=== PATIENT | female | born 1940 | race Caucasian/White ===

== ENCOUNTER → 2016-12-01 | Outpatient (CLI) | payer MEDICARE, MEDICAID ==
[~2016-12-01] MED LIST: ACET-168 PO; ASP325T PO; ASP325TEC PO; ASPI-999 PO; ATOR40TA70 PO; ATR20T PO; BP MEDS; BUDE10.2 INH; BUDE6HFA IH; CENTRUM SILVER WOMEN; CLN.1T PO; CLONIDINE; CLONIDINE PO; CLOP75TA69 PO; DCS100C PO; DICL75TA2 PO; DOXY100T2 PO; FAMO20TA5 PO; FAMO20TA73 PO; FENO134C PO; FENO135C PO; FESO4TAB2 PO; Famotidine PO; GABA600T2 PO; GBPN600T PO; HCT25T PO; HCTZ12.5T GT; HYDR25TA4 PO; IPRA3AMP IH; IPRA3AMP INH; LEVO500T69 PO; LEVO750T39 PO; LOSA100T7 PO; LOSARTAN; LOVASTATIN; MAGN400T6 PO; METO-272 PO; METO100T5 PO; MULT-166 PO; MULT-974 PO; MULT1CAP27 PO; NIFE30TA82 PO; NIFE60TA64 PO; NIFE90TA PO; OMEG-105 PO; POTA10CA43 PO; PRD10T PO; RNT150T PO; RT-ALBUINH IH; TIOT18CA IH; TRAM50TA2 PO; TRAZ-144 PO; TRAZ50TA67 PO; WHEA236P PO; [UNRECOGNIZED DRUG - CODE] TD; oxygen; trazodone PO
--- OUTSIDE RECORDS SUMMARY | 2016-12-01 08:35 | XMS REPORT | Continuity of Care Document ---
Author Author [facility] Organization [facility] Address Unknown Phone Unavailable Care Team Providers Care Turbine Technician Name Role Phone PCP Unavailable Source Comments Some departments are not documenting in the electronic medical record. If you do not see the information that you expected, contact Release of Information in the Health Information Management department at [phone] for further assistance in locating additional records.[facility] Active Allergies and Adverse Reactions Allergen Noted Date Severity Reactions Comments Clonidine 03/24/2016 Low SEE COMMENTS Pancreatitis Codeine 03/24/2016 High HYPOTENSION, SYNCOPE Metoprolol 03/24/2016 Low SEE COMMENTS Pancreatitis Morphine 03/24/2016 High HYPOTENSION, SYNCOPE Pcn 03/24/2016 High SWOLLEN TONGUE Hlmfcou-Lyl-Wip Reductase 03/24/2016 Low SEE COMMENTS Pancreatitis Inhibitors Tramadol 03/24/2016 High DELUSIONS Current Medications Prescription Sig. Disp. Refills Start End Date Status Date famotidine(+) (PEPCID) 40 Take 40 mg by mouth Active mg tablet daily. NIFEdipine XL Take 30 mg by mouth Active (PROCARDIA-XL) 30 mg daily. tablet traZODone (DESYREL) 50 mg Take 25 mg by mouth at Active tablet bedtime daily. budesonide/formoterol Inhale 2 Puffs by mouth Active (SYMBICORT) 160/4.5 mcg twice daily. HFAA inhalation docusate (COLACE) 100 mg Take 100 mg by mouth Active capsule twice daily. aspirin 325 mg tablet Take 325 mg by mouth Active daily. MULTIVITAMIN PO Take by mouth. Active albuterol 0.5% Inhale 2.5 mg solution as Active (PROVENTIL; VENTOLIN) 2.5 directed every 6 hours as mg/0.5 mL nebu nebulizer needed. solution albuterol-ipratropium Inhale 3 mL solution as Active (DUO-NEB, DUO-VENT) 0.5 directed four times mg-3 mg(2.5 mg base)/3 mL daily. nebulizer solution ACETAMINOPHEN (TYLENOL Take by mouth. Active PO) diazepam (VALIUM) 5 mg Take 5 mg by mouth every Active tablet 6 hours as needed for Anxiety. CALCIUM CARBONATE/VITAMIN Take by mouth. 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 Prepare for avastin Central retinal vein occlusion of left eye 03/25/2016 Last Assessment & Plan: Non ischemic resolved CRVO OS Social History Tobacco Use Types Packs/Day Years Used Date Current Every Day Smoker Cigarettes 0.5 Smokeless Tobacco: Never Used Alcohol Use Drinks/Week oz/Week Comments No 0 Standard 0.0 drinks or equivalent Last Filed Vital Signs Vital Sign Reading Time Taken Blood Pressure 180/94 05/11/2016 8:04 AM CDT Pulse 68 05/11/2016 8:04 AM CDT Temperature - - Respiratory Rate - - Height 1.702 m (5' 7") 05/11/2016 8:04 AM CDT Weight 64 kg (141 lb 1.5 oz) 05/11/2016 8:04 AM CDT Body Mass Index 22.09 05/11/2016 8:04 AM CDT Oxygen Saturation - - Plan of Care Health Maintenance Due Date Last Done Comments Physical (Comprehensive) 1949 Exam Pertussis Vaccine 1953 Tetanus Vaccine 1959 Breast Cancer Screening 1982 Colorectal Cancer 1992 Screening Shingles Vaccine 2002 Osteoporosis Screening 2007 Prevnar/Pneumovax (#1) 2007 Influenza Vaccine 07/23/2016 Results from Last 3 Months Not on file
--- NOTE | 2016-12-02 14:50 | Diagnostic Imaging Report ---
Bilateral screening mammogram The current study was also evaluated with a Computer Aided Detection (CAD) system. INDICATION: Screening. No current complaints stated on the questionnaire. COMPARISON: 11/07/15. FINDINGS: The breasts are composed of scattered fibroglandular densities. There are occasional benign-appearing calcifications. Allowing for technique and positional differences, no suspicious change is seen. IMPRESSION: No significant change. ACR BI-RADS Category 2: Benign findings. Result letter will be mailed to the patient. Note: At least 10% of breast cancer is not imaged by mammography. Dictated by: Dictated on workstation # [id number]
== END ==
LOC: RAD 08:32
PROVIDERS: ATTEND Family Medicine
DX: Z12.31 Encounter for screening mammogram for malignant neoplasm of breast (principal)

== ENCOUNTER 2016-12-17 05:43 | Outpatient (CLI) | payer MEDICARE, MEDICAID ==
[~2016-12-17] VITALS: Ht 170.2 cm; Wt 70.3 kg
[~2016-12-17 05:43] MED LIST changes: -NIFE60TA64 PO
--- OUTSIDE RECORDS SUMMARY | 2016-12-17 05:46 | XMS REPORT | Continuity of Care Document ---
Author Author [facility] Organization [facility] Address Unknown Phone Unavailable Care Team Providers Care Kiosk Sales Representative Name Role Phone PCP Unavailable Source Comments Some departments are not documenting in the electronic medical record. If you do not see the information that you expected, contact Release of Information in the Health Information Management department at [phone] for further assistance in locating additional records.[facility] Active Allergies and Adverse Reactions Allergen Noted Date Severity Reactions Comments Clonidine 03/24/2016 Low SEE COMMENTS Pancreatitis Codeine 03/24/2016 High HYPOTENSION, SYNCOPE Metoprolol 03/24/2016 Low SEE COMMENTS Pancreatitis Morphine 03/24/2016 High HYPOTENSION, SYNCOPE Pcn 03/24/2016 High SWOLLEN TONGUE Hnzmzke-Snq-Ojc Reductase 03/24/2016 Low SEE COMMENTS Pancreatitis Inhibitors [...]
[2016-12-17] MEDS ORDERED: IPRA3AMP IH (15:03)
[2016-12-17] MEDS ORDERED: NIFE60TA64 PO (15:03)
== END 2016-12-17 15:06 ==
LOC: PREOP 05:43
PROVIDERS: ATTEND Surgery
DX: Z01.818 Encounter for other preprocedural examination (principal); Z86.010 Personal history of colon polyps

== ENCOUNTER 2016-12-22 08:47 | Day surgery (SDC) | payer MEDICARE, MEDICAID ==
[~2016-12-22] VITALS: Ht 170.2 cm; Wt 70.3 kg
[~2016-12-22 08:47] MED LIST changes: +NIFE60TA64 PO
--- OUTSIDE RECORDS SUMMARY | 2016-12-22 08:51 | XMS REPORT | Continuity of Care Document ---
Author Author [facility] Organization [facility] Address Unknown Phone Unavailable Care Team Providers Care Regional Business Development Manager Name Role Phone PCP Unavailable Source Comments Some departments are not documenting in the electronic medical record. If you do not see the information that you expected, contact Release of Information in the Health Information Management department at [phone] for further assistance in locating additional records.[facility] Active Allergies and Adverse Reactions Allergen Noted Date Severity Reactions Comments Clonidine 03/24/2016 Low SEE COMMENTS Pancreatitis Codeine 03/24/2016 High HYPOTENSION, SYNCOPE Metoprolol 03/24/2016 Low SEE COMMENTS Pancreatitis Morphine 03/24/2016 High HYPOTENSION, SYNCOPE Pcn 03/24/2016 High SWOLLEN TONGUE Xyqgcli-Cbx-Mbg Reductase 03/24/2016 Low SEE COMMENTS Pancreatitis Inhibitors [...]
--- OUTSIDE RECORDS SUMMARY | 2016-12-22 08:51 | XMS REPORT | Continuity of Care Document ---
Author Author [facility] Organization [facility] Address Unknown Phone Unavailable Care Team Providers Care Power Line Installer Name Role Phone PCP Unavailable Source Comments Some departments are not documenting in the electronic medical record. If you do not see the information that you expected, contact Release of Information in the Health Information Management department at [phone] for further assistance in locating additional records.[facility] Active Allergies and Adverse Reactions Allergen Noted Date Severity Reactions Comments Clonidine 03/24/2016 Low SEE COMMENTS Pancreatitis Codeine 03/24/2016 High HYPOTENSION, SYNCOPE Metoprolol 03/24/2016 Low SEE COMMENTS Pancreatitis Morphine 03/24/2016 High HYPOTENSION, SYNCOPE Pcn 03/24/2016 High SWOLLEN TONGUE Vndjojv-Bgi-Smw Reductase 03/24/2016 Low SEE COMMENTS Pancreatitis Inhibitors [...]
[2016-12-22] MEDS ORDERED: NS IV 1000 ML 1,000 ML IV STA (08:54)
[2016-12-22] MEDS ORDERED: CLINDAMYCIN 900 MG/50 ML IVPB 50 ML IV ONE ×2 (09:02→09:15)
[2016-12-22] MEDS ORDERED: CATHETER FLUSH 10 ML SYR IV PRN (09:15)
[2016-12-22 09:18] VITALS: BP 165/72
--- NOTE | 2016-12-22 09:53 | Progress Note-Pre Operative ---
Pre-Operative Progress Note H&P Reviewed The H&P was reviewed, patient examined and no changes noted. Date H&P Reviewed: Dec 22, 2016 Time H&P Reviewed: 09:53 Pre-Operative Diagnosis: hx of colon polyps ELIDA LEIGH DO Dec 22, 2016 09:53
[2016-12-22] MEDS ORDERED: PROPOFOL INJECTION 50 ML IV ONE (10:13)
[2016-12-22] MEDS ORDERED: MIDAZOLAM 2 MG/2 ML (VERSED) VIAL ONE (10:13)
--- NOTE | 2016-12-22 10:59 | Discharge Inst-Simple/Standard ---
Discharge Inst-Standard Patient Instructions/Follow Up Plan of Care/Instructions/FU: Hold aspirin for 3 days Follow up with Dr. Queen in 2 weeks Activity as Tolerated: Yes Discharge Diet: No Restrictions CHLOÉ GARBER APRN Dec 22, 2016 10:59
--- NOTE | 2016-12-22 11:00 | Progress Note-Post Operative ---
Post-Operative Progess Note Pre-Operative Diagnosis hx of colon polyps Post-Operative Diagnosis descending colon polyp Post-Op Procedure Note Date of Procedure: Dec 22, 2016 Name of Procedure: colonoscopy c hot bx polypectomy Procedure Note/Findings see note Anesthesia Type per unhairer Estimated blood loss (mL): none Specimen(s) collected colon polyp ELIDA LEIGH DO Dec 22, 2016 11:00
[2016-12-22 11:15] VITALS: BP 165/72
[2016-12-22 11:45] VITALS: BP 130/89
[2016-12-22 12:00] VITALS: BP 130/89
--- NOTE | 2016-12-23 10:41 | OPERATIVE REPORT ---
PROCEDURE PHYSICIAN: ELIDA LEIGH DATE OF PROCEDURE: 12/22/2016 PREOPERATIVE DIAGNOSIS: History of colon polyps. POSTOPERATIVE DIAGNOSIS: Descending colon polyp. PROCEDURE: Colonoscopy with hot biopsy polypectomy. SURGEON: Bret. ANESTHESIA: Per HYDROTHERAPIST. ESTIMATED BLOOD LOSS: None. COMPLICATIONS: None. INDICATIONS: The patient is a 76-year-old female with history of colon polyps. She understands the y risk and benefits of the procedure and wishes to proceed with the procedure. Consent was signed on the chart. PROCEDURE: The patient was taken to the endoscopy suite, placed in left lateral recumbent position. Timeout was performed. Digital rectal exam was performed. There was no palpable polyps, masses, ulcerations. The scope was inserted in the rectum and advanced all the way to the cecum with minimal difficulty. Prep was adequate. The scope was then slowly retracted back. The terminal ileum was intubated noting no pathology. The scope was returned back into the colon then slowly retracted back. There were no polyps, masses ulceration of the cecum, ascending, and transverse colon. Within the descending, there is a small sessile polyp was present which hot biopsy polypectomy was performed. The scope was continued be slowly retracted back. There was a little bit of diverticulosis present in the sigmoid colon. There were no polyps, masses, ulcerations. The scope was slowly retracted back into the rectum where it was also retroflexed noting no further pathology. The scope was returned to its normal position and slowly withdrawn until completely removed. The patient tolerated procedure well without any complications and taken to the recovery room in stable condition. RECOMMENDATIONS: The patient will need repeat colonoscopy in 5 years. If she has any problems prior to that, she should be reevaluated at that time. She will follow-up in the office in two weeks to discuss pathology. Job ID: [id number] Dictated Date: 12/22/2016 11:02:49 Stapler Hand Date: 12/23/2016 10:37:00 / she
== END 2016-12-22 12:00 | disposition home or self-care (01) ==
LOC: ENDO 08:47
PROVIDERS: ATTEND Surgery
DX: Z12.11 Encounter for screening for malignant neoplasm of colon (principal); K63.5 Polyp of colon; Z86.010 Personal history of colon polyps
CPT/HCPCS: 88305

== ENCOUNTER 2017-06-10 09:10 | Emergency (ER) | payer MEDICARE, MEDICAID ==
[~2017-06-10] VITALS: Ht 170.2 cm; Wt 68.9 kg
[2017-06-10 09:59] LABS: BASOPHILS % (AUTO) 0 % (0-10); EOSINOPHILS # (AUTO) 0.1 10^3/uL (0.0-0.3); EOSINOPHILS % (AUTO) 1 % (0-10); LYMPHOCYTES # (AUTO) 1.3 X 10^3 (1.0-4.0); LYMPHOCYTES % (AUTO) 13 % (12-44); MEAN CORPUSCULAR HEMOGLOBIN 30 PG (25-34); MEAN CORPUSCULAR HGB CONC 33 G/DL (32-36); MEAN CORPUSCULAR VOLUME 93 FL (80-99); MEAN PLATELET VOLUME 10.2 FL (7.4-10.4); MONOCYTES % (AUTO) 10 % (0-12); NEUTROPHILS # (AUTO) 7.5 X 10^3 (1.8-7.8); NEUTROPHILS % (AUTO) 75 % (42-75); PLATELET COUNT 273 10^3/uL (130-400); RED BLOOD COUNT 4.48 10^6/uL (4.35-5.85); RED CELL DISTRIBUTION WIDTH 13.6 % (10.0-14.5)
[2017-06-10 10:11] LABS: PROTHROMBIN TIME PATIENT 13.2 SEC (12.2-14.7)
[2017-06-10] MEDS: ASPIRIN 81 MG CHEW (CHILDREN'S ASA) PO ONE (10:12)
--- NOTE | 2017-06-10 10:21 | Diagnostic Imaging Report ---
Portable upright radiograph of the chest. INDICATION: Chest tightness and shortness of breath. FINDINGS: The heart is moderately enlarged. There is mild interstitial prominence suggestive of vascular congestion. Chronic interstitial thickening component is probably present. No effusion or pneumothorax. The mediastinum and norma appear unremarkable. Surgical clips in the upper right abdomen seen. IMPRESSION: Cardiomegaly with pulmonary vascular congestion. Dictated by: Dictated on workstation # [id number]
[2017-06-10 10:24] LABS: ALANINE AMINOTRANSFERASE 10 U/L (0-55); ALBUMIN 3.4 GM/DL (3.2-4.5); AMYLASE 58 U/L (25-125); ANION GAP 13 MMOL/L (5-14); ASPARTATE AMINO TRANSFERASE 19 U/L (5-34); BILIRUBIN,TOTAL 0.5 MG/DL (0.1-1.0); BLOOD UREA NITROGEN 20 MG/DL (7-18); BUN/CREATININE RATIO 20; CALCIUM 9.7 MG/DL (8.5-10.1); CARBON DIOXIDE 21 MMOL/L (21-32); CHLORIDE 105 MMOL/L (98-107); CREATINE KINASE 27 U/L (29-168); CREATININE SERUM 1.02 MG/DL (0.60-1.30); GFR ESTIMATED 53; GLUCOSE 100 MG/DL (70-105); LIPASE 13 U/L (8-78); MAGNESIUM 2.1 MG/DL (1.8-2.4); POTASSIUM 4.3 MMOL/L (3.6-5.0); SODIUM 139 MMOL/L (135-145); TOTAL PROTEIN 7.2 GM/DL (6.4-8.2)
[2017-06-10 10:32] LABS: TROPONIN I < 0.30 NG/ML (<0.30)
--- NOTE | 2017-06-10 10:42 | ED Cardiac General ---
History of Present Illness General Chief Complaint: Cardiac/General Problems Stated Complaint: SOA LOW BP/LIGHTHEADED Nursing Triage Note: AMB TO ROOM HAS FELT SOA FOR SEVERAL DAY WITH CHEST TIGHTNESS. TODAY HER BLOOD PRESSURE WAS 120 /[address] MORFIN TO COME TO ED FOR LOW B/P Source: patient History of Present Illness Time seen by provider: 09:31 Initial Comments PT ARRIVES VIA POV FROM HOME PT STATES SHE WAS SENT HERE BY DR. MORFIN FOR PT'S REPORTED "LOW BLOOD PRESSURE " OF 120/70 THIS AM AT HOME PT STATES NORMAL BP FOR HER IS 148-154/73-77. WAS IN 180'S-190'S/90'S A FEW MONTHS AGO, BUT DR. HARDEN INCREASED HER DOSE OF NIFEDIPINE FROM 60 TO 90 MG A DAY. PT STATES SHE HAS HAD CHEST TIGHTNESS AND SHORTNESS OF BREATH, ESPECIALLY ON EXERTION FOR THE LAST FEW DAYS ALSO HAS CHEST TIGHTNESS WITH DEEP BREATHS WELL PT STATES SHE HAS FELT BAD FOR THE LAST 3 DAYS WITH DECREASED APPETITE, DECREASED INTAKE, DIZZINESS, DECREASED URINE OUTPUT. PT STATES SHE HAS HAD NAUSEA FOR A WEEK, NO VOMITING. NO DIARRHEA. NO CONSTIPATION NO COUGH NO FEVER, SWEATS OR CHILLS NO SWELLING IN LEGS/ FEET OR PAIN IN CALVES PT STATES SHE IS LIGHTHEADED WITH MOVEMENTS PT HAS COPD AND STATES THAT SHE NORMALLY WEARS O2 AT 1 1/2 L/NC AT HS AND PRN DURING THE DAY. FOR THE LAST 3 DAYS SHE HAS INCREASED IT TO 3L/NC AND HAS BEEN WEARING IN CONTINUOUSLY DAY AND NIGHT. PT SMOKES 3 PPD PT HAS HISTORY OF CAD AND HAS HAD STENT X 1. NO HISTORY OF MO. PT STATES THE ONLY MEDICATION SHE HAS TAKEN TODAY WAS 81 MG ASPIRIN. PCP: DR. MORFIN--LAST SEEN 05/27/17 FOR ROUTINE EXAM. NO MEDICATION CHANGES CARDIOLOGY: DR. HARDEN--SEEN A FEW MONTHS AGO FOR ROUTINE EXAM. Allergies and Home Medications Allergies Coded Allergies: cephalexin (Verified Allergy, Unknown, 04/02/09) codeine (Verified Allergy, Unknown, 01/28/09) hydrocodone (Verified Allergy, Unknown, chest tightness, 05/03/16) morphine (Verified Allergy, Unknown, 01/28/09) oxycodone (Verified Allergy, Unknown, chest tightness, 05/03/16) penicillin G (Verified Allergy, Unknown, 01/28/09) tramadol (Unverified Adverse Reaction, Unknown, 01/04/15) ACTS GOOFY Home Medications Acetaminophen 500 Mg Tablet, 1,000 MG PO Q8H PRN for PAIN, (Reported) TAKES 2 (500MG) TABLETS Aspirin 81 Mg Tab.chew, 81 MG PO DAILY, #90 Ref 3 Prescribed by: GIL HARDEN on 07/29/16 0839 Budesonide/Formoterol Fumarate 10.2 Gm Hfa.aer.ad, 2 PUFF INH BID, (Reported) Docusate Sodium 100 Mg Cap, 200-300 MG PO HS, (Reported) TAKES 2 to 3 (100MG) CAPSULES Famotidine 20 Mg Tablet, 20 MG PO BID, (Reported) Ipratropium/Albuterol Sulfate 3 Ml Ampul.neb, 3 ML IH Q4H PRN for SHORTNESS OF BREATH, (Reported) Methylprednisolone 4 Mg Tab.ds.pk, 4 MG PO UD, #1 Prescribed by: EMILIE KEARNEY on 06/10/17 1204 Multivitamin with Minerals 1 Each Tablet, 1 TAB PO DAILY, (Reported) Nifedipine 60 Mg Tab.er.24, 90 MG PO DAILY, (Reported) Trazodone Hcl 50 Mg Tablet, 25 MG PO HS PRN for SLEEP, (Reported) TAKES 1/2 (25MG) TABLET Wheat Dextrin 236 Gm Powder, 2 TSP PO TID, (Reported) Review of Systems Constitutional: see HPI, dizziness, malaise, other (DECREASED APPETITE) EENTM: No Symptoms Reported Respiratory: See HPI, Denies Cough, Denies Orthopnea, Shortness of Air, SOA With Exertion, SOA at Rest, Wheezing Cardiovascular: See HPI, Chest Pain, Denies Edema, Denies Irregular Heart Rate , Lightheadedness, Denies Palpitations, Denies Syncope Gastrointestinal: See HPI, Denies Abdominal Pain, Denies Constipated, Denies Diarrhea, Nausea, Poor Appetite, Poor Fluid Intake, Denies Vomiting Genitourinary: See HPI (DECREASED OUTPUT) Musculoskeletal: no symptoms reported, No back pain, No neck pain Skin: no symptoms reported Psychiatric/Neurological: No Symptoms Reported Endocrine: No Symptoms Reported Hematologic/Lymphatic: No Symptoms Reported Past Ftreecb-[id number]-Pvmvkt Hx Patient Social History Alcohol Use: Denies Use Recreational Drug Use: No Smoking Status: Current Everyday Smoker (UP TO 3 PPD) Type Used: Cigarettes Recent Foreign Travel: No Contact w/Someone Who Travel: No Recent Infectious Disease Expo: No Recent Hopitalizations: No Immunizations Up To Date Tetanus Booster (TDap): Unknown PED Vaccines UTD: No Date of Pneumonia Vaccine: Jul 23, 2016 Date of Influenza Vaccine: Jul 23, 2016 Seasonal Allergies Seasonal Allergies: No Surgeries HX Surgeries: Yes (RIGHT LEG STENT, RIGHT HAND/FINGER TENDON REPAIR; RIGHT FOOT SURGERY;CARDIAC CATHS AND PERIPHERAL ANGIOGRAMS WITH RIGHT STENT X - 2015; HYST/OVARIES INTACT; BILATERAL TOTAL HIP REPLACEMENT; TENDON REPAIR RIGHT HAND; EXPL LAP ) Surgeries: Abdominal, Adenoidectomy, Appendectomy, Cardiac, Gallbladder, Hysterectomy, Joint Replacement, Orthopedic, Tonsillectomy, Vascular Surgery Respiratory Hx Respiratory Disorders: Yes (P.E. X 2 IN 1966-- RELATED; wears oxygen at HS AND PRN DURING THE DAY) Respiratory Disorders: Pneumonia, Chronic Bronchitis, Pulmonary Embolism, COPD Cardiovascular Hx Cardiac Disorders: Yes (CAROTID DISEASE, PERIPHERAL VASCULAR DISEASE WITH RIGHT LEG STENT 07/2016; ) Cardiac Disorders: Coronary Artery Disease, High Cholesterol, Hypertension, Peripheral Vascular Neurological Hx Neurological Disorders: Yes Neurological Disorders: Neuropathy 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 System Hx 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 Disorders: Yes (CERVICAL CANCER) Sexually Transmitted Disease: No HIV/AIDS: No Female 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 Disorders: Denies TOOL HARDENER History: Hysterectomy, Menopausal Genitourinary Hx Genitourinary Disorders: Yes Genitourinary Disorders: Kidney Stones Gastrointestinal Hx Gastrointestinal Disorders: Yes Gastrointestinal Disorders: Gastroesophageal Reflux, Pancreatitis, Polyps, Ulcer Musculoskeletal Hx Musculoskeletal Disorders: Yes Musculoskeletal Disorders: Arthritis Endocrine Hx Endocrine Disorders: No HEENT HX ENT Disorders: Yes HEENT Disorders: Cataract, Tonsilitis Loss of Vision: Bilateral Hearing Impairment: Denies Cancer Hx Cancer: Yes Cancer: Cervical Psychosocial Hx Psychiatric Problems: Yes Behavioral Health Disorders: Depression Integumentary HX Skin/Integumentary Disorder: Yes (FOOT ULCERS, FOOT CELLULITIS) Skin/Integumentary Disorders: Psoriasis Blood Transfusions Hx Blood Disorders: No Adverse Reaction to a Blood Tr: No Family Medical History Family Medial History: Cardiovascular disease 19 MOTHER, Onset:60 years & older Completed stroke 19 FATHER, Onset:50's - 60 Diabetes mellitus 19 MOTHER, Onset:50's - 60 FH: lung cancer G8 SISTER, Onset:Unknown FH: renal failure Gall bladder cancer G8 SISTER, Onset:60 years & older Hypercholesterolemia G8 BROTHER, Onset:Unknown Hypertension G8 BROTHER, Onset:Unknown Kidney disease 19 MOTHER, Onset:50's - 60 Lung G8 SISTER, Onset:Unknown Myocardial infarction 19 MOTHER, Onset:60 years & older G8 BROTHER, Onset:60 years & older Renal 19 MOTHER, Onset:50's - 60 (Mom was on dialysis.) Physical Exam Vital Signs Vital Sign - Last 12Hours 06/10/17 09:17 Temp 98.0 Pulse 91 Resp 18 B/P (MAP) 130/89 Pulse Ox 95 O2 Delivery Nasal Cannula O2 Flow Rate 2.00 Capillary Refill : Less Than 3 Seconds General Appearance: No Apparent Distress, WD/WN, Other (REEKS OF CIGARETTES) HEENT: PERRL/EOMI Neck: Full Range of Motion, Normal Inspection, Non Tender, Supple Respiratory: Normal Breath Sounds, No Accessory Muscle Use, No Respiratory Distress Cardiovascular: Regular Rate, Rhythm, No Edema, No JVD, No Murmur, Normal Peripheral Pulses Gastrointestinal: Normal Bowel Sounds, No Organomegaly, No Pulsatile Mass, Non Tender, Soft Extremity: Normal Capillary Refill, Normal Inspection, Normal Range of Motion, Non Tender, No Calf Tenderness, No Pedal Edema Neurologic/Psychiatric: Alert, Oriented x3, No Motor/Sensory Deficits, Normal Mood/Affect, 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 Norm as Tested Skin: Normal Color, Warm/Dry Progress/Results/Core Measures Results/Orders Lab Results Laboratory Tests Test 06/10/17 09:43 Range/Units White Blood Count 10.0 4.3-11.0 10^3/uL Red Blood Count 4.48 4.35-5.85 10^6/uL Hemoglobin 13.6 11.5-16.0 G/DL Hematocrit 42 35-52 % Mean Corpuscular Volume 93 80-99 FL Mean Corpuscular Hemoglobin 30 25-34 PG Mean Corpuscular Hemoglobin Concent 33 32-36 G/DL Red Cell Distribution Width 13.6 10.0-14.5 % Platelet Count 273 130-400 10^3/uL Mean Platelet Volume 10.2 7.4-10.4 FL Neutrophils (%) (Auto) 75 42-75 % Lymphocytes (%) (Auto) 13 12-44 % Monocytes (%) (Auto) 10 0-12 % Eosinophils (%) (Auto) 1 0-10 % Basophils (%) (Auto) 0 0-10 % Neutrophils # (Auto) 7.5 1.8-7.8 X 10^3 Lymphocytes # (Auto) 1.3 1.0-4.0 X 10^3 Monocytes # (Auto) 1.0 0.0-1.0 X 10^3 Eosinophils # (Auto) 0.1 0.0-0.3 10^3/uL Basophils # (Auto) 0.0 0.0-0.1 10^3/uL Prothrombin Time 13.2 12.2-14.7 SEC INR Comment 1.0 0.8-1.4 Activated Partial Thromboplast Time 32 24-35 SEC Sodium Level 139 135-145 MMOL/L Potassium Level 4.3 3.6-5.0 MMOL/L Chloride Level 105 98-107 MMOL/L Carbon Dioxide Level 21 21-32 MMOL/L Anion Gap 13 5-14 MMOL/L Blood Urea Nitrogen 20 H 7-18 MG/DL Creatinine 1.02 0.60-1.30 MG/DL Estimat Glomerular Filtration Rate 53 BUN/Creatinine Ratio 20 Glucose Level 100 70-105 MG/DL Calcium Level 9.7 8.5-10.1 MG/DL Magnesium Level 2.1 1.8-2.4 MG/DL Total Bilirubin 0.5 0.1-1.0 MG/DL Aspartate Amino Transf (AST/SGOT) 19 5-34 U/L Alanine Aminotransferase (ALT/SGPT) 10 0-55 U/L Alkaline Phosphatase 77 40-136 U/L Total Creatine Kinase 27 L 29-168 U/L Creatine Kinase MB 1.2 <6.6 NG/ML Troponin I < 0.30 <0.30 NG/ML B-Type Natriuretic Peptide 30.8 <100.0 PG/ML Total Protein 7.2 6.4-8.2 GM/DL Albumin 3.4 3.2-4.5 GM/DL Amylase Level 58 25-125 U/L Lipase 13 8-78 U/L My Orders Orders - EMILIE KEARNEY DO Amylase (06/10/17 09:32) Cbc With Automated Diff (06/10/17 09:32) Comprehensive Metabolic Panel (06/10/17 09:32) Creatine Kinase (06/10/17 09:32) Creatine Kinase Mb (06/10/17 09:32) Lipase (06/10/17 09:32) Partial Thromboplastin Time (06/10/17 09:32) Protime With Inr (06/10/17 09:32) Troponin I (06/10/17 09:32) Chest 1 View, Ap/Pa Only (06/10/17 09:32) O2 (06/10/17 09:32) Ekg Tracing (06/10/17 09:32) Aspirin Chewable Tablet (Baby Aspirin Ch (06/10/17 09:45) BNP (06/10/17 09:32) Monitor-Rhythm Ecg Trace Only (06/10/17 09:32) Magnesium (06/10/17 09:32) Ct Angio Chest W (06/10/17 10:36) Saline Lock/Iv-Start (06/10/17 10:36) Lactated Ringers (Lr 1000 Ml Iv Solution (06/10/17 10:36) Iohexol Injection (Omnipaque 350 Mg/Ml 1 (06/10/17 10:45) Ns (Ivpb) (Sodium Chloride 0.9% Ivpb Bag (06/10/17 10:45) Medications Given in ED Current Medications Medications Dose Ordered Sig/Arley Route Start Time Stop Time Status Last Admin Dose Admin Aspirin 324 mg ONCE ONCE PO 06/10/17 09:45 06/10/17 09:46 DC 06/10/17 10:12 324 MG Iohexol 100 ml ONCE ONCE IV 06/10/17 10:45 06/10/17 10:46 DC 06/10/17 11:01 100 ML Lactated Ringer's 1,000 ml @ 0 mls/hr Q0M ONCE IV 06/10/17 10:36 06/10/17 10:39 DC 06/10/17 10:54 1,000 MLS/HR Sodium Chloride 100 ml ONCE ONCE IV 06/10/17 10:45 06/10/17 10:46 DC 06/10/17 11:01 80 ML Vital Signs/I&O Vital Sign - Last 12Hours 06/10/17 06/10/17 06/10/17 06/10/17 09:17 09:17 12:57 12:59 Temp 98.0 Pulse 91 80 84 Resp 18 18 18 B/P (MAP) 130/89 123/68 Pulse Ox 95 96 98 O2 Delivery Nasal Cannula Room Air Nasal Cannula Room Air O2 Flow Rate 2.00 2.00 Blood Pressure Mean: 103 Progress Note : Progress Note UNEVENTFUL ER STAY. NO DETERIORATION IN PT'S CONDITION DURING ER STAY. PT ONLY C/O CHEST TIGHTNESS WITH DEEP BREATHS--DECLINES ANY MEDICATIONS OF ANY KIND ECG Initial ECG Impression Time: 09:28 Initial ECG Rate: 83 Initial ECG Rhythm: Normal Sinus Initial ECG Impression: Nonspecific Changes Initial ECG Comparisson: Unchanged Diagnostic Imaging Comments CXR--CARDIOMEGALY WITH CENTRAL PULMONARY VASCULAR CONGESTION--PER RADIOLOGIST REPORT @ 1035 CT CHEST ANGIOGRAM--5.3 CM LEFT LOWER LOBE MASS WITH PLEURAL EFFUSION, -- SUSPICIOUS FOR MALIGNANCY, COPD--PER DR. MEZA VIA PHONE AT [phone] Reviewed: Reviewed by Me, Discussed w/Radiologist Departure Communication Progress Notes 1150--CALLED DR. MORFIN OFFICE. SHE IS NOT CURRENTLY IN OFFICE, CELL PHONE NUMBER GIVEN [phone]--SPOKE WITH DR. MORFIN AND INFORMED HER OF PT'S TEST RESULTS. SHE WILL SEE PT IN OFFICE NEXT WEEK. WILL CONSULT DR. FORD [id number]--SPOKE WITH DR. FORD, HE WILL SEE PT IN OFFICE ON WEDNESDAY AT 10:30 AND ARRANGE FOR BRONCHOSCOPY NEXT WEEK. Impression Impression: Primary Impression: LLL LUNG MASS Additional Impressions: COPD (chronic obstructive pulmonary disease) Tobacco abuse Chest pain on exertion Dyspnea on exertion Disposition: 01 HOME, SELF-CARE Condition: Stable Departure-Patient Inst. Referrals: ELBA FORD RACHEL L MD (PCP/Family) Primary Care Physician Patient Instructions: COPD Including Emphysema (DC), CT Scan, Chest, Smoking: Not Just Harmful to Your Lungs and Heart Add. Discharge Instructions: CONTINUE YOUR REGULAR MEDICATIONS PRESCRIBED USE YOUR HOME OXYGEN AT 3L CONTINUOUSLY FOLLOW UP WITH DR. MORFIN IN THE OFFICE NEXT WEEK-CALL TODAY FOR APPOINTMENT FOLLOW UP WITH DR. FORD ON WednesdayJUNE 15 AT 10:30 RETURN TO ER IF SYMPTOMS WORSEN All discharge instructions reviewed with patient and/or family. Voiced understanding. Scripts Methylprednisolone (Medrol) 4 Mg Tab.ds.pk 4 MG PO UD, #1 PKG Prov: EMILIE KEARNEY DO 06/10/17 EMILIE KEARNEY DO Jun 10, 2017 10:42
[2017-06-10] MEDS: LACTATED RINGERS 1,000 ML IV ONE (10:54)
[2017-06-10] MEDS: NS 100 ML (IVPB) BAG IV ONE (11:01)
[2017-06-10] MEDS: IOHEXOL 350 MG/ML 100 ML (OMNIPAQUE 350) VIAL IV ONE (11:01)
--- NOTE | 2017-06-10 11:54 | Diagnostic Imaging Report ---
PROCEDURE: CT angiography of the chest with contrast. TECHNIQUE: Multiple contiguous axial images were obtained through the chest after uneventful bolus administration of intravenous contrast. Reconstructed CTA MIP acquisitions were also performed. INDICATION: Shortness of breath. History of cervical cancer. 100 mL of Omnipaque 350 is administered intravenously. FINDINGS: There is a 5.4 x 3.1 x 4.8 cm mass seen in the medial aspect of the left lower lobe. There is internal heterogeneity and peripheral enhancement. This is favored to be neoplastic rather than a masslike consolidation. There is an associated small left pleural effusion. The left lower lobe and the base demonstrate patchy area of consolidation and groundglass opacities which could be related to postobstructive atelectasis. Based on discussion with Dr. Cash, the patient does not have the picture of pneumonia clinically. There is bronchiectasis with scarring suggested in the inferior lingula. There is upper lobe predominant emphysema. No significant consolidation or mass in the right lung. There are mildly enlarged lymph nodes in the left hilum measuring 1.2 CM and subaortic station borderline lymph node measuring one CM is seen. A nonspecific 9 mm right hilar lymph nodes is also seen. A small infracarinal lymph node measuring 9 mm is noted. There is also a 1.6 cm left paraesophageal lymph node seen at the level of the mass near the lower third of the esophagus, likely malignant. The thoracic aorta is normal in caliber. The pulmonary arteries are well opacified with no filling defects to suggest PE. There is mild dilatation of the pulmonary artery trunk and main pulmonary arteries which may relate to pulmonary hypertension. The heart size is at the upper limits of normal with coronary artery calcification. No pericardial effusion is noted. Sections in the upper abdomen demonstrate some motion artifacts and evidence of a prior cholecystectomy and other anterior surgical clips are seen in the upper abdomen. Correlate with surgical history. There is a diffuse thickening in the adrenal glands more prominent on the left side with no discrete mass. The osseous structures demonstrate prominent degenerative changes with no destructive mass. IMPRESSION: 1. A 5.4 cm mass in the medial aspect of the left lower lobe is seen concerning for lung cancer. There is mildly enlarged left hilar, and left periesophageal lymph node. Other borderline mediastinal and right hilar nonspecific nodes are seen. 2. There is thickening of the adrenal glands more on the left side with no definite discrete mass. This could be related to hyperplasia. 3. Emphysema. 4. Dilated pulmonary arteries, may relate to pulmonary hypertension. The findings on this exam were discussed with Dr. Cash by Dr. Meraz at time of dictation. Dictated by: Dictated on workstation # [id number]
[2017-06-10] MEDS ORDERED: METH4TAB PO (12:04)
[2017-06-10 12:57] VITALS: BP 123/68
[2017-06-10 12:59] VITALS: BP 142/79
== END 2017-06-10 12:24 | disposition home or self-care (01) ==
LOC: EDUNIT# 09:10 → ER 09:14
DX: J44.9 Chronic obstructive pulmonary disease, unspecified (principal); R91.8 Other nonspecific abnormal finding of lung field; I25.10 Atherosclerotic heart disease of native coronary artery without angina pectoris; E78.00 Pure hypercholesterolemia, unspecified; I10 Essential (primary) hypertension; K21.9 Gastro-esophageal reflux disease without esophagitis; M19.90 Unspecified osteoarthritis, unspecified site; F32.9 Major depressive disorder, single episode, unspecified; F17.210 Nicotine dependence, cigarettes, uncomplicated; Z95.5 Presence of coronary angioplasty implant and graft; Z79.82 Long term (current) use of aspirin; Z96.643 Presence of artificial hip joint, bilateral; Z90.49 Acquired absence of other specified parts of digestive tract; Z90.710 Acquired absence of both cervix and uterus; Z90.89 Acquired absence of other organs; Z86.711 Personal history of pulmonary embolism; Z87.442 Personal history of urinary calculi; Z87.11 Personal history of peptic ulcer disease; Z85.41 Personal history of malignant neoplasm of cervix uteri
CPT/HCPCS: 36415; 71010; 71275; 80053; 82150; 82550; 82553; 83690; 83735; 83880; 84484; 85025; 85610; 85730; 93005; 93041

== ENCOUNTER 2017-06-11 19:24 | Emergency (ER) | payer MEDICARE, MEDICAID ==
[~2017-06-11] VITALS: Ht 170.2 cm; Wt 68.9 kg
[~2017-06-11 19:24] MED LIST changes: +METH4TAB PO
[2017-06-11] MEDS ORDERED: RT-ALBUTEROL/IPRATROPIUM 3 ML (DUONEB) VIAL INH ONE (19:45)
--- NOTE | 2017-06-11 19:55 | ED General ---
General Chief Complaint: Respiratory Problems Stated Complaint: SOA,LOW BP,LIGHTHEADED Nursing Triage Note: PT AMBUALTED TO ROOM. PT STATES SHE WAS IN THE ER YESTERDAY WAS PRESCRIBED MEDICATION AND THIS MORNING STARTED TO FEEL BAD AGAIN. BLOOD PRESSURE HAS BEEN DECREASING ALL DAY STATED BY PT. PT ALSO COMPLAINS OF CHEST PAIN. Nursing Sepsis Screen: No Definite Risk Source of Information: Patient Exam Limitations: No Limitations History of Present Illness Time Seen by Provider: 19:35 Initial Comments Here with report of increasing shortness of breath and weakness today. Feels like she has chest tightness in a bandlike structure crossed her chest. Was seen yesterday and diagnosed with posterior chest mass. She is going to have further evaluation next week she reports fever of 99.5 this morning. Reports her low blood pressure is actually in the 130s. She typically runs 160s or 180s systolic. Normally uses 2 or 3 L of oxygen via nasal cannula at home. She is a long-term smoker but has significantly reduced her smoking. She has not used any rescue inhalers today. Timing/Duration: 1-2 Days Severity: Moderate Associated Systoms: Chest Pain (tightness), Fever/Chills, No Nausea/Vomiting, Shortness of Air, Weakness Allergies and Home Medications Allergies Coded Allergies: cephalexin (Verified Allergy, Unknown, 04/02/09) codeine (Verified Allergy, Unknown, 01/28/09) hydrocodone (Verified Allergy, Unknown, chest tightness, 05/03/16) morphine (Verified Allergy, Unknown, 01/28/09) oxycodone (Verified Allergy, Unknown, chest tightness, 05/03/16) penicillin G (Verified Allergy, Unknown, 01/28/09) tramadol (Unverified Adverse Reaction, Unknown, 01/04/15) ACTS GOOFY Home Medications Acetaminophen 500 Mg Tablet, 1,000 MG PO Q8H PRN for PAIN, (Reported) TAKES 2 (500MG) TABLETS Aspirin 81 Mg Tab.chew, 81 MG PO DAILY, #90 Ref 3 Prescribed by: GIL HARDEN on 07/29/16 0839 Budesonide/Formoterol Fumarate 10.2 Gm Hfa.aer.ad, 2 PUFF INH BID, (Reported) Docusate Sodium 100 Mg Cap, 200-300 MG PO HS, (Reported) TAKES 2 to 3 (100MG) CAPSULES Famotidine 20 Mg Tablet, 20 MG PO BID, (Reported) Ipratropium/Albuterol Sulfate 3 Ml Ampul.neb, 3 ML IH Q4H PRN for SHORTNESS OF BREATH, (Reported) Methylprednisolone 4 Mg Tab.ds.pk, 4 MG PO UD, #1 Prescribed by: EMILIE KEARNEY on 06/10/17 1204 Multivitamin with Minerals 1 Each Tablet, 1 TAB PO DAILY, (Reported) Nifedipine 60 Mg Tab.er.24, 90 MG PO DAILY, (Reported) Trazodone Hcl 50 Mg Tablet, 25 MG PO HS PRN for SLEEP, (Reported) TAKES 1/2 (25MG) TABLET Wheat Dextrin 236 Gm Powder, 2 TSP PO TID, (Reported) Constitutional: see HPI, No chills, fever, weakness EENTM: no symptoms reported Respiratory: cough, short of breath, wheezing Cardiovascular: chest pain, No edema, No palpitations Gastrointestinal: No abdominal pain, No nausea, No vomiting Genitourinary: no symptoms reported Musculoskeletal: no symptoms reported Skin: no symptoms reported All Other Systems Reviewed Negative Unless Noted: Yes Past Hldoklm-Eujvsu-Miifxh Hx Patient Social History Alcohol Use: Denies Use Recreational Drug Use: No Smoking Status: Current Everyday Smoker Type Used: Cigarettes Recent Foreign Travel: No Contact w/Someone Who Travel: No Recent Infectious Disease Expo: No Recent Hopitalizations: No Immunizations Up To Date Tetanus Booster (TDap): Unknown PED Vaccines UTD: No Date of Pneumonia Vaccine: Jul 23, 2016 Date of Influenza Vaccine: Jul 23, 2016 Seasonal Allergies Seasonal Allergies: No Surgeries HX Surgeries: Yes Surgeries: Abdominal, Adenoidectomy, Appendectomy, Cardiac, Gallbladder, Hysterectomy, Joint Replacement, Orthopedic, Tonsillectomy, Vascular Surgery Respiratory Hx Respiratory Disorders: Yes Respiratory Disorders: Pneumonia, Chronic Bronchitis, Pulmonary Embolism, COPD Cardiovascular Hx Cardiac Disorders: Yes (CAROTID DISEASE, PERIPHERAL VASCULAR DISEASE WITH RIGHT LEG STENT 07/2016; ) Cardiac Disorders: Coronary Artery Disease, High Cholesterol, Hypertension, Peripheral Vascular Neurological Hx Neurological Disorders: Yes Neurological Disorders: Neuropathy 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 System Hx 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 Disorders: Yes (CERVICAL CANCER) Sexually Transmitted Disease: No HIV/AIDS: No Female 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 Disorders: Denies [employer] History: Hysterectomy, Menopausal Genitourinary Hx Genitourinary Disorders: Yes Genitourinary Disorders: Kidney Stones Gastrointestinal Hx Gastrointestinal Disorders: Yes Gastrointestinal Disorders: Gastroesophageal Reflux, Pancreatitis, Polyps, Ulcer Musculoskeletal Hx Musculoskeletal Disorders: Yes Musculoskeletal Disorders: Arthritis Endocrine Hx Endocrine Disorders: No HEENT HX ENT Disorders: Yes HEENT Disorders: Cataract, Tonsilitis Loss of Vision: Bilateral Hearing Impairment: Denies Cancer Hx Cancer: Yes Cancer: Cervical Psychosocial Hx Psychiatric Problems: Yes Behavioral Health Disorders: Depression Integumentary HX Skin/Integumentary Disorder: Yes (FOOT ULCERS, FOOT CELLULITIS) Skin/Integumentary Disorders: Psoriasis Blood Transfusions Hx Blood Disorders: No Adverse Reaction to a Blood Tr: No Reviewed Nursing Assessment Reviewed/Agree w Nursing PMH: Yes Family Medical History Family Medial History: Cardiovascular disease 19 MOTHER, Onset:60 years & older Completed stroke 19 FATHER, Onset:50's - 60 Diabetes mellitus 19 MOTHER, Onset:50's - 60 FH: lung cancer G8 SISTER, Onset:Unknown FH: renal failure Gall bladder cancer G8 SISTER, Onset:60 years & older Hypercholesterolemia G8 BROTHER, Onset:Unknown Hypertension G8 BROTHER, Onset:Unknown Kidney disease 19 MOTHER, Onset:50's - 60 Lung G8 SISTER, Onset:Unknown Myocardial infarction 19 MOTHER, Onset:60 years & older G8 BROTHER, Onset:60 years & older Renal 19 MOTHER, Onset:50's - 60 (Mom was on dialysis.) Physical Exam-Suspected Sepsis Physical Exam Vital Signs Vital Sign - Last 12Hours 06/11/17 19:30 Temp 98.7 Pulse 98 Resp 20 B/P (MAP) 147/89 Pulse Ox 94 O2 Delivery Nasal Cannula O2 Flow Rate 2.00 FiO2 94 Capillary Refill : Less Than 3 Seconds Blood Pressure Mean: 108 General Appearance: No Apparent Distress, WD/WN HEENT: PERRL/EOMI, Pharynx Normal Neck: Non Tender, Supple Respiratory: No Respiratory Distress, Decreased Breath Sounds Cardiovascular: Regular Rate, Rhythm, No Murmur Gastrointestinal: Non Tender, Soft Back: Normal Inspection, No CVA Tenderness, No Vertebral Tenderness Extremity: Non Tender, No Calf Tenderness Neurologic/Psychiatric: Alert, Oriented x3 Skin: normal color, warm/dry Focused Exam Lactic Acid Level Laboratory Tests Test 06/11/17 19:55 Lactic Acid Level 0.74 MMOL/L (0.50-2.00) Progress/Results/Core Measures Suspected Sepsis Recent Fever Within 48 Hours: No Infection Criteria Present: None New/Unexplained Altered Menta: No Sepsis Screen: No Definite Risk Sepsis Diagnosis: SIRS Temperature:98.7 Pulse: 98 Respiratory Rate: 20 Laboratory Tests 06/11/17 19:55: White Blood Count 11.9H Blood Pressure 147 /89 Mean: 108 Laboratory Tests 06/11/17 19:55: Creatinine 0.91, INR Comment 1.1, Platelet Count 302, Total Bilirubin 0.3 Results/Orders Lab Results Laboratory Tests Test 06/11/17 19:55 06/11/17 21:27 Range/Units White Blood Count 11.9 H 4.3-11.0 10^3/uL Red Blood Count 4.25 L 4.35-5.85 10^6/uL Hemoglobin 12.9 11.5-16.0 G/DL Hematocrit 39 35-52 % Mean Corpuscular Volume 92 80-99 FL Mean Corpuscular Hemoglobin 30 25-34 PG Mean Corpuscular Hemoglobin Concent 33 32-36 G/DL Red Cell Distribution Width 13.5 10.0-14.5 % Platelet Count 302 130-400 10^3/uL Mean Platelet Volume 10.6 H 7.4-10.4 FL Neutrophils (%) (Auto) 74 42-75 % Lymphocytes (%) (Auto) 16 12-44 % Monocytes (%) (Auto) 10 0-12 % Eosinophils (%) (Auto) 1 0-10 % Basophils (%) (Auto) 0 0-10 % Neutrophils # (Auto) 8.8 H 1.8-7.8 X 10^3 Lymphocytes # (Auto) 1.8 1.0-4.0 X 10^3 Monocytes # (Auto) 1.2 H 0.0-1.0 X 10^3 Eosinophils # (Auto) 0.1 0.0-0.3 10^3/uL Basophils # (Auto) 0.0 0.0-0.1 10^3/uL Prothrombin Time 13.6 12.2-14.7 SEC INR Comment 1.1 0.8-1.4 Activated Partial Thromboplast Time 34 24-35 SEC Sodium Level 139 135-145 MMOL/L Potassium Level 4.4 3.6-5.0 MMOL/L Chloride Level 105 98-107 MMOL/L Carbon Dioxide Level 19 L 21-32 MMOL/L Anion Gap 15 H 5-14 MMOL/L Blood Urea Nitrogen 17 7-18 MG/DL Creatinine 0.91 0.60-1.30 MG/DL Estimat Glomerular Filtration Rate 60 BUN/Creatinine Ratio 19 Glucose Level 100 70-105 MG/DL Lactic Acid Level 0.74 0.50-2.00 MMOL/L Calcium Level 9.3 8.5-10.1 MG/DL Total Bilirubin 0.3 0.1-1.0 MG/DL Aspartate Amino Transf (AST/SGOT) 21 5-34 U/L Alanine Aminotransferase (ALT/SGPT) 15 0-55 U/L Alkaline Phosphatase 79 40-136 U/L Troponin I < 0.30 <0.30 NG/ML Total Protein 7.2 6.4-8.2 GM/DL Albumin 3.4 3.2-4.5 GM/DL Urine Color YELLOW Urine Clarity CLEAR Urine pH 5 5-9 Urine Specific [place] 1.015 L 1.016-1.022 Urine Protein NEGATIVE NEGATIVE Urine Glucose (UA) NEGATIVE NEGATIVE Urine Ketones 1+ H NEGATIVE Urine Nitrite NEGATIVE NEGATIVE Urine Bilirubin NEGATIVE NEGATIVE Urine Urobilinogen NORMAL NORMAL MG/DL Urine Leukocyte Esterase 1+ H NEGATIVE Urine RBC (Auto) 1+ H NEGATIVE Urine RBC RARE /HPF Urine WBC 0-2 /HPF Urine Crystals NONE /LPF Urine Bacteria NEGATIVE /HPF Urine Casts NONE /LPF Urine Mucus NEGATIVE /LPF Urine Culture Indicated NO My Orders Orders - ROGELIO DIAZ MD Chest Pa/Lat (2 View) (06/11/17 19:42) Cbc With Automated Diff (06/11/17 19:42) Comprehensive Metabolic Panel (06/11/17 19:42) Lactic Acid Analyzer (06/11/17 19:42) Blood Culture (06/11/17 19:42) Sputum Culture (06/11/17 19:42) Ua Culture If Indicated (06/11/17 19:42) Protime With Inr (06/11/17 19:42) Partial Thromboplastin Time (06/11/17 19:42) O2 (06/11/17 19:42) Saline Lock/Iv-Start (06/11/17 19:42) Ekg Tracing (06/11/17 19:42) Troponin I (06/11/17 19:42) Vital Signs Adult Sepsis Patie Q1HR (06/11/17 19:42) Remove Rings In Anticipation O (06/11/17 19:42) Albuterol/Ipra Inhalation Soln (Duoneb I (06/11/17 19:45) Svn Sm Volume Nebulizer Rt-Rfs (06/11/17 19:42) Ns Iv 1000 Ml (Sodium Chloride 0.9%) (06/11/17 20:05) Medications Given in ED Current Medications Medications Dose Ordered Sig/Arley Route Start Time Stop Time Status Last Admin Dose Admin Albuterol/ Ipratropium 3 ml ONCE ONCE INH 06/11/17 19:45 06/11/17 19:46 DC 06/11/17 19:51 3 ML Sodium Chloride 1,000 ml @ 0 mls/hr Q0M ONCE IV 06/11/17 20:05 06/11/17 20:06 DC 06/11/17 20:09 1,000 MLS/HR Vital Signs/I&O Vital Sign - Last 12Hours 06/11/17 06/11/17 06/11/17 19:30 19:30 19:52 Temp 98.7 Pulse 98 Resp 20 B/P (MAP) 147/89 Pulse Ox 94 94 96 O2 Delivery Nasal Cannula Room Air Nasal Cannula O2 Flow Rate 2.00 2.00 3.00 FiO2 94 Capillary Refill : Less Than 3 Seconds Blood Pressure Mean: 108 Progress Note : Progress Note Seen and evaluated. IV, labs, EKG, chest x-ray, blood cultures and lactic acid ordered. Normal saline 1 L bolus. Duo neb ordered. Monitor patient. Little better after DuoNeb. UA obtained. I did review all the labs and findings as well as concerns with the patient. She does have a large lung mass. She states that she has appointment with Dr. Sparrow on Wednesday. She is currently on steroids (which may be adding to her lightheaded feeling) and has plenty of albuterol and DuoNeb nebulizer treatments at home. She would like to go home and continue those at home and follow-up as scheduled. She was encouraged strongly to return for any concerns. Patient agreed. Discharged home with return precautions. Patient verbalize understanding instructions and agreement with plan. ECG Initial ECG Impression Date: Jun 11, 2017 Initial ECG Impression Time: 19:35 Initial ECG Rate: 96 Initial ECG Rhythm: Normal Sinus Comment Sinus rhythm with left atrial abnormality. Normal axis. No evidence of ST elevation IN. Overall similar EKG from yesterday. Interpreted by me. Departure Impression Impression: Primary Impression: Mass of lower lobe of left lung Additional Impressions: COPD (chronic obstructive pulmonary disease) with acute bronchitis Dehydration Disposition: 01 HOME, SELF-CARE Condition: Stable Departure-Patient Inst. Decision time for Depature: 21:55 Referrals: REA MORFIN MD (PCP/Family) Primary Care Physician Patient Instructions: Acute Bronchitis, Adult (DC), Dehydration, Adult (DC) Add. Discharge Instructions: All discharge instructions reviewed with patient and/or family. Voiced understanding. Keep your appointment for the lung mass as scheduled with Dr. Sparrow. You should use your albuterol and DuoNeb treatments for chest tightness. Continue home medications as directed. Drink plenty of fluids. Eat a normal diet. Return for worse pain, fever, vomiting, weakness, breathing problems or other concerns as needed. ROGELIO DIAZ MD Jun 11, 2017 19:54
[2017-06-11] MEDS ORDERED: NS IV 1000 ML 1,000 ML IV ONE (20:05)
[2017-06-11 20:06] LABS: BASOPHILS % (AUTO) 0 % (0-10); EOSINOPHILS # (AUTO) 0.1 10^3/uL (0.0-0.3); EOSINOPHILS % (AUTO) 1 % (0-10); LYMPHOCYTES # (AUTO) 1.8 X 10^3 (1.0-4.0); LYMPHOCYTES % (AUTO) 16 % (12-44); MEAN CORPUSCULAR HEMOGLOBIN 30 PG (25-34); MEAN CORPUSCULAR HGB CONC 33 G/DL (32-36); MEAN CORPUSCULAR VOLUME 92 FL (80-99); MEAN PLATELET VOLUME 10.6 FL (7.4-10.4); MONOCYTES # (AUTO) 1.2 X 10^3 (0.0-1.0); MONOCYTES % (AUTO) 10 % (0-12); NEUTROPHILS # (AUTO) 8.8 X 10^3 (1.8-7.8); NEUTROPHILS % (AUTO) 74 % (42-75); PLATELET COUNT 302 10^3/uL (130-400); RED BLOOD COUNT 4.25 10^6/uL (4.35-5.85); RED CELL DISTRIBUTION WIDTH 13.5 % (10.0-14.5); WHITE BLOOD COUNT 11.9 10^3/uL (4.3-11.0)
[2017-06-11 20:25] LABS: INR 1.1 (0.8-1.4); PROTHROMBIN TIME PATIENT 13.6 SEC (12.2-14.7)
[2017-06-11 20:29] LABS: ALANINE AMINOTRANSFERASE 15 U/L (0-55); ALBUMIN 3.4 GM/DL (3.2-4.5); ANION GAP 15 MMOL/L (5-14); ASPARTATE AMINO TRANSFERASE 21 U/L (5-34); BILIRUBIN,TOTAL 0.3 MG/DL (0.1-1.0); BLOOD UREA NITROGEN 17 MG/DL (7-18); BUN/CREATININE RATIO 19; CALCIUM 9.3 MG/DL (8.5-10.1); CARBON DIOXIDE 19 MMOL/L (21-32); CHLORIDE 105 MMOL/L (98-107); CREATININE SERUM 0.91 MG/DL (0.60-1.30); GFR ESTIMATED 60; GLUCOSE 100 MG/DL (70-105); POTASSIUM 4.4 MMOL/L (3.6-5.0); SODIUM 139 MMOL/L (135-145); TOTAL PROTEIN 7.2 GM/DL (6.4-8.2)
[2017-06-11 20:35] LABS: TROPONIN I < 0.30 NG/ML (<0.30)
--- NOTE | 2017-06-11 20:40 | Diagnostic Imaging Report ---
EXAM: CHEST PA/LAT (2 VIEW) INDICATION: Chest pain. Hypotension. COMPARISON: Chest radiograph and CTA chest 06/10/2017. FINDINGS: Normal heart size and pulmonary vascularity. The known mass in the left lower lobe is best appreciated on the lateral view. Small bilateral pleural effusions or thickening. No pneumothorax. No acute osseous findings. No significant change from the prior radiograph. IMPRESSION: 1. No acute cardiopulmonary findings. 2. The known mass in the left lower lobe is best appreciated on the lateral views. Dictated by: Dictated on workstation # [id number]
[2017-06-11 21:33] LABS: BILIRUBIN,URINE NEGATIVE (NEGATIVE); KETONES,URINE 1+ (NEGATIVE); LEUKOCYTE ESTERASE ,URINE 1+ (NEGATIVE); NITRITE,URINE NEGATIVE (NEGATIVE); PH,URINE 5 (5-9); PROTEIN,URINE NEGATIVE (NEGATIVE); UROBILINOGEN,URINE NORMAL (NORMAL)
[2017-06-11 21:48] LABS: WBC,URINE 0-2 /HPF
[2017-06-11 21:56] VITALS: BP 141/73
== END 2017-06-11 21:56 | disposition home or self-care (01) ==
LOC: EDUNIT# 19:24 → ER 19:25
DX: J44.9 Chronic obstructive pulmonary disease, unspecified (principal); E86.0 Dehydration; R91.8 Other nonspecific abnormal finding of lung field; I73.9 Peripheral vascular disease, unspecified; I25.10 Atherosclerotic heart disease of native coronary artery without angina pectoris; E78.00 Pure hypercholesterolemia, unspecified; I10 Essential (primary) hypertension; K21.9 Gastro-esophageal reflux disease without esophagitis; M19.90 Unspecified osteoarthritis, unspecified site; F32.9 Major depressive disorder, single episode, unspecified; E11.40 Type 2 diabetes mellitus with diabetic neuropathy, unspecified; F17.210 Nicotine dependence, cigarettes, uncomplicated; Z82.49 Family history of ischemic heart disease and other diseases of the circulatory system; Z85.41 Personal history of malignant neoplasm of cervix uteri; Z86.711 Personal history of pulmonary embolism; Z90.89 Acquired absence of other organs; Z90.710 Acquired absence of both cervix and uterus; Z79.82 Long term (current) use of aspirin
CPT/HCPCS: 36415; 71020; 80053; 81000; 83605; 84484; 85025; 85610; 85730; 87040; 93005; 94640; 96360

== ENCOUNTER → 2017-06-22 | Outpatient (CLI) | payer MEDICARE, MEDICAID ==
[~2017-06-22] MED LIST changes: +TRAZ-28 PO
--- NOTE | 2017-06-22 20:34 | Diagnostic Imaging Report ---
EXAMINATION: PET-CT TECHNIQUE: Serum glucose level at the time of the study is: 122 mg/dL. 11.9 mCi of FDG was administered intravenously followed by obtaining PET images with corresponding noncontrast CT scan images. The CT scan was performed for anatomic correlation and attenuation correction and was not performed according to the diagnostic protocol of the areas covered. The scan was performed from the head to mid thighs. INDICATION: Lung nodule. FINDINGS: There is a lung mass measuring 4.7 cm with prominent hypermetabolism seen in the medial aspect of the left lower lobe with maximum SUV of 14. There are hypermetabolic lymph nodes seen in the left hilum and infracarinal station. There are innumerable foci of intense hypermetabolism in the osseous structures including the entire spine, the ribs, the scapula bilaterally and the pelvis, and both femurs. These are associated with intense hypermetabolism compatible with metastasis. There is however no significant CT scan findings of sclerotic or lytic lesions at these locations. There are also multiple liver metastasis with prominent hypermetabolism. There are also left para-aortic lymph nodes in the abdomen and hypermetabolic nodules in the abdominal wall. There are also subcutaneous hypermetabolic nodules posterior to the right clavicle measuring 1 cm and hypermetabolic nodules in the scalp generally subcentimeter in size, not well seen on the unenhanced CT associated with this PET. IMPRESSION: There is a dominant intensely hypermetabolic mass in the medial aspect of the left lower lobe of the lung with widespread metastasis to the bone, the liver, and some lymph nodes in the chest and upper abdomen, and abdominal wall and subcutaneous nodules, as described. Dictated by: Dictated on workstation # [id number]
== END ==
LOC: RAD 07:44
PROVIDERS: ATTEND Nurse Practitioner Family
DX: R91.8 Other nonspecific abnormal finding of lung field (principal); C79.51 Secondary malignant neoplasm of bone; C77.2 Secondary and unspecified malignant neoplasm of intra-abdominal lymph nodes; C78.7 Secondary malignant neoplasm of liver and intrahepatic bile duct

== ENCOUNTER 2017-06-23 10:25 | Inpatient (IN) | payer MEDICARE, MEDICAID ==
[2017-06-23] VITALS (11 sets, daily range): BP systolic 99–126; BP diastolic 61–86
[~2017-06-23] VITALS: Ht 170.2 cm; Wt 70.3 kg
[~2017-06-23 10:25] MED LIST changes: -TRAZ-28 PO
[2017-06-23] MEDS ORDERED: RT-ALBUTEROL/IPRATROPIUM 3 ML (DUONEB) VIAL INH ONE (10:45)
[2017-06-23] MEDS ORDERED: NS IV 1000 ML 1,000 ML IV ONE (10:45)
[2017-06-23] MEDS ORDERED: methylPREDNISolone 125 MG (Solu-MEDROL) VIAL IVP ONE (11:00)
[2017-06-23 11:15] LABS: BASOPHILS % (AUTO) 0 % (0-10); EOSINOPHILS % (AUTO) 0 % (0-10); LYMPHOCYTES # (AUTO) 1.4 X 10^3 (1.0-4.0); LYMPHOCYTES % (AUTO) 10 % (12-44); MEAN CORPUSCULAR HEMOGLOBIN 30 PG (25-34); MEAN CORPUSCULAR HGB CONC 32 G/DL (32-36); MEAN CORPUSCULAR VOLUME 92 FL (80-99); MEAN PLATELET VOLUME 10.2 FL (7.4-10.4); MONOCYTES # (AUTO) 1.5 X 10^3 (0.0-1.0); MONOCYTES % (AUTO) 10 % (0-12); NEUTROPHILS # (AUTO) 11.3 X 10^3 (1.8-7.8); NEUTROPHILS % (AUTO) 79 % (42-75); PLATELET COUNT 334 10^3/uL (130-400); RED BLOOD COUNT 3.92 10^6/uL (4.35-5.85); WHITE BLOOD COUNT 14.2 10^3/uL (4.3-11.0)
[2017-06-23] MEDS ORDERED: RT-ALBUTEROL SULF 2.5 MG/3 ML PRE-MIX VIAL INH STA (11:22)
[2017-06-23 11:26] LABS: INR 1.4 (0.8-1.4); PROTHROMBIN TIME PATIENT 16.8 SEC (12.2-14.7)
[2017-06-23] MEDS ORDERED: RT-IPRATROPIUM (ATROVENT) 0.5MG/2.5ML AMP IH ONE (11:30)
[2017-06-23 11:34] LABS: ALANINE AMINOTRANSFERASE 83 U/L (0-55); ALBUMIN 2.7 GM/DL (3.2-4.5); ANION GAP 12 MMOL/L (5-14); ASPARTATE AMINO TRANSFERASE 98 U/L (5-34); BILIRUBIN,TOTAL 0.6 MG/DL (0.1-1.0); BLOOD UREA NITROGEN 22 MG/DL (7-18); BUN/CREATININE RATIO 27; CARBON DIOXIDE 24 MMOL/L (21-32); CHLORIDE 100 MMOL/L (98-107); CREATININE SERUM 0.81 MG/DL (0.60-1.30); GFR ESTIMATED > 60; GLUCOSE 103 MG/DL (70-105); POTASSIUM 4.9 MMOL/L (3.6-5.0); SODIUM 136 MMOL/L (135-145); TOTAL PROTEIN 6.6 GM/DL (6.4-8.2)
[2017-06-23 11:37] LABS: LYMPHOCYTES % (MANUAL) 2 %; NEUTROPHILS % (MANUAL) 93 %
--- NOTE | 2017-06-23 11:50 | ED General ---
General Chief Complaint: Respiratory Problems Stated Complaint: SOB Nursing Triage Note: c/o progressive soa. States she was recently diagosed for a possible intrathoracic tumor. Nursing Sepsis Screen: No Definite Risk Source of Information: Patient, Family, Old Records Exam Limitations: No Limitations History of Present Illness Time Seen by Provider: 10:27 Initial Comments This 76-year-old woman presents to the emergency room in respiratory distress with significant wheezing and decreased air movement. She reports having a chest mass recently diagnosed by x-ray. A PET scan was performed yesterday. She does not yet know the results. Patient was hypoxic on room air with an oxygen saturation of 85 percent and tachycardic with heart rate of 113. Patient has not been able to eat or drink well and may be dry her family's report. Patient complains of increased problems with abdominal pain and a left lower chest pain especially with breathing and position changes. The primary area of pain concerning her is near the left flank. She had diarrhea last week and has not had bowel movement since then. She denies any nausea, vomiting. She reports quitting smoking 2 weeks ago. Allergies and Home Medications Allergies Coded Allergies: cephalexin (Verified Allergy, Unknown, 04/02/09) codeine (Verified Allergy, Unknown, 01/28/09) hydrocodone (Verified Allergy, Unknown, chest tightness, 05/03/16) morphine (Verified Allergy, Unknown, 01/28/09) oxycodone (Verified Allergy, Unknown, chest tightness, 05/03/16) penicillin G (Verified Allergy, Unknown, 01/28/09) tramadol (Unverified Adverse Reaction, Unknown, 01/04/15) ACTS GOOFY Home Medications Acetaminophen 500 Mg Tablet, 1,000 MG PO Q8H PRN for PAIN, (Reported) TAKES 2 (500MG) TABLETS Aspirin 81 Mg Tab.chew, 81 MG PO DAILY, #90 Ref 3 Prescribed by: GIL HARDEN on 07/29/16 0839 Budesonide/Formoterol Fumarate 10.2 Gm Hfa.aer.ad, 2 PUFF INH BID, (Reported) Docusate Sodium 100 Mg Cap, 200-300 MG PO HS, (Reported) TAKES 2 to 3 (100MG) CAPSULES Famotidine 20 Mg Tablet, 20 MG PO BID, (Reported) Ipratropium/Albuterol Sulfate 3 Ml Ampul.neb, 3 ML IH Q4H PRN for SHORTNESS OF BREATH, (Reported) Methylprednisolone 4 Mg Tab.ds.pk, 4 MG PO UD, #1 Prescribed by: EMILIE KEARNEY on 06/10/17 1204 Multivitamin with Minerals 1 Each Tablet, 1 TAB PO DAILY, (Reported) Nifedipine 60 Mg Tab.er.24, 90 MG PO DAILY, (Reported) Trazodone Hcl 50 Mg Tablet, 25 MG PO HS PRN for SLEEP, (Reported) TAKES 1/2 (25MG) TABLET Wheat Dextrin 236 Gm Powder, 2 TSP PO TID, (Reported) Constitutional: no symptoms reported EENTM: no symptoms reported Respiratory: see HPI Cardiovascular: no symptoms reported Gastrointestinal: see HPI Genitourinary: no symptoms reported Musculoskeletal: see HPI Skin: no symptoms reported Psychiatric/Neurological: No Symptoms Reported Hematologic/Lymphatic: No Symptoms Reported Past Ihfdlrn-Oqissd-Tssuvz Hx Patient Social History Alcohol Use: Denies Use Recreational Drug Use: No Smoking Status: Current Everyday Smoker Type Used: Cigarettes 2nd Hand Smoke Exposure: Yes Recent Foreign Travel: No Contact w/Someone Who Travel: No Recent Infectious Disease Expo: No Recent Hopitalizations: No Immunizations Up To Date Tetanus Booster (TDap): Unknown PED Vaccines UTD: No Date of Pneumonia Vaccine: Jul 23, 2016 Date of Influenza Vaccine: Jul 23, 2016 Seasonal Allergies Seasonal Allergies: No Surgeries HX Surgeries: Yes Surgeries: Abdominal, Adenoidectomy, Appendectomy, Cardiac, Gallbladder, Hysterectomy, Joint Replacement, Orthopedic, Tonsillectomy, Vascular Surgery Respiratory Hx Respiratory Disorders: Yes Respiratory Disorders: Pneumonia, Chronic Bronchitis, Pulmonary Embolism, COPD Cardiovascular Hx Cardiac Disorders: Yes (CAROTID DISEASE, PERIPHERAL VASCULAR DISEASE WITH RIGHT LEG STENT 07/2016; ) Cardiac Disorders: Coronary Artery Disease, High Cholesterol, Hypertension, Peripheral Vascular Neurological Hx Neurological Disorders: Yes Neurological Disorders: Neuropathy 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 System Hx 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 Disorders: Yes (CERVICAL CANCER) Sexually Transmitted Disease: No HIV/AIDS: No Female 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 Disorders: Denies 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, Menopausal Genitourinary Hx Genitourinary Disorders: Yes Genitourinary Disorders: Kidney Stones Gastrointestinal Hx Gastrointestinal Disorders: Yes Gastrointestinal Disorders: Gastroesophageal Reflux, Pancreatitis, Polyps, Ulcer Musculoskeletal Hx Musculoskeletal Disorders: Yes Musculoskeletal Disorders: Arthritis Endocrine Hx Endocrine Disorders: No HEENT HX ENT Disorders: Yes HEENT Disorders: Cataract, Tonsilitis Loss of Vision: Bilateral Hearing Impairment: Denies Cancer Hx Cancer: Yes Cancer: Cervical Psychosocial Hx Psychiatric Problems: Yes Behavioral Health Disorders: Depression Integumentary HX Skin/Integumentary Disorder: Yes (FOOT ULCERS, FOOT CELLULITIS) Skin/Integumentary Disorders: Psoriasis Blood Transfusions Hx Blood Disorders: No Adverse Reaction to a Blood Tr: No Family Medical History Family Medial History: Cardiovascular disease 19 MOTHER, Onset:60 years & older Completed stroke 19 FATHER, Onset:50's - 60 Diabetes mellitus 19 MOTHER, Onset:50's - 60 FH: lung cancer G8 SISTER, Onset:Unknown FH: renal failure Gall bladder cancer G8 SISTER, Onset:60 years & older Hypercholesterolemia G8 BROTHER, Onset:Unknown Hypertension G8 BROTHER, Onset:Unknown Kidney disease 19 MOTHER, Onset:50's - 60 Lung G8 SISTER, Onset:Unknown Myocardial infarction 19 MOTHER, Onset:60 years & older G8 BROTHER, Onset:60 years & older Renal 19 MOTHER, Onset:50's - 60 (Mom was on dialysis.) Physical Exam Vital Signs Vital Sign - Last 12Hours 06/23/17 10:25 Temp 97.5 Pulse 110 Resp 18 B/P (MAP) 126/59 Pulse Ox 98 O2 Delivery Room Air O2 Flow Rate 3.00 FiO2 95 Capillary Refill : Less Than 3 Seconds General Appearance: WD/WN, Mild Distress HEENT: PERRL/EOMI, Normal ENT Inspection Neck: Normal Inspection Respiratory: Accessory Muscle Use, No Crackles, Respiratory Distress, Wheezing Cardiovascular: No Edema, No Murmur, Tachycardia Gastrointestinal: Normal Bowel Sounds, Non Tender, Soft Extremity: Normal Inspection, Non Tender, No Calf Tenderness, No Pedal Edema, Other (negative Mehul) Neurologic/Psychiatric: Alert, Oriented x3, No Motor/Sensory Deficits, Normal 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, 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 Skin: Normal Color, Warm/Dry Focused Exam Lactic Acid Level Laboratory Tests Test 06/23/17 11:07 Lactic Acid Level 1.33 MMOL/L (0.50-2.00) Progress/Results/Core Measures Results/Orders Lab Results Laboratory Tests Test 06/23/17 11:07 Range/Units White Blood Count 14.2 H 4.3-11.0 10^3/uL Red Blood Count 3.92 L 4.35-5.85 10^6/uL Hemoglobin 11.6 11.5-16.0 G/DL Hematocrit 36 35-52 % Mean Corpuscular Volume 92 80-99 FL Mean Corpuscular Hemoglobin 30 25-34 PG Mean Corpuscular Hemoglobin Concent 32 32-36 G/DL Red Cell Distribution Width 14.0 10.0-14.5 % Platelet Count 334 130-400 10^3/uL Mean Platelet Volume 10.2 7.4-10.4 FL Neutrophils (%) (Auto) 79 H 42-75 % Lymphocytes (%) (Auto) 10 L 12-44 % Monocytes (%) (Auto) 10 0-12 % Eosinophils (%) (Auto) 0 0-10 % Basophils (%) (Auto) 0 0-10 % Neutrophils # (Auto) 11.3 H 1.8-7.8 X 10^3 Lymphocytes # (Auto) 1.4 1.0-4.0 X 10^3 Monocytes # (Auto) 1.5 H 0.0-1.0 X 10^3 Eosinophils # (Auto) 0.0 0.0-0.3 10^3/uL Basophils # (Auto) 0.0 0.0-0.1 10^3/uL Neutrophils % (Manual) 93 % Lymphocytes % (Manual) 2 % Monocytes % (Manual) 5 % Blood Morphology Comment NORMAL Prothrombin Time 16.8 H 12.2-14.7 SEC INR Comment 1.4 0.8-1.4 Activated Partial Thromboplast Time 38 H 24-35 SEC Sodium Level 136 135-145 MMOL/L Potassium Level 4.9 3.6-5.0 MMOL/L Chloride Level 100 98-107 MMOL/L Carbon Dioxide Level 24 21-32 MMOL/L Anion Gap 12 5-14 MMOL/L Blood Urea Nitrogen 22 H 7-18 MG/DL Creatinine 0.81 0.60-1.30 MG/DL Estimat Glomerular Filtration Rate > 60 BUN/Creatinine Ratio 27 Glucose Level 103 70-105 MG/DL Lactic Acid Level 1.33 0.50-2.00 MMOL/L Calcium Level 11.0 H 8.5-10.1 MG/DL Total Bilirubin 0.6 0.1-1.0 MG/DL Aspartate Amino Transf (AST/SGOT) 98 H 5-34 U/L Alanine Aminotransferase (ALT/SGPT) 83 H 0-55 U/L Alkaline Phosphatase 102 40-136 U/L B-Type Natriuretic Peptide 73.6 <100.0 PG/ML Total Protein 6.6 6.4-8.2 GM/DL Albumin 2.7 L 3.2-4.5 GM/DL Lipase 13 8-78 U/L My Orders Orders - JADYN MOE MD Lactic Acid Analyzer (06/23/17 10:44) Blood Culture (06/23/17 10:44) Sputum Culture (06/23/17 10:44) Ua Culture If Indicated (06/23/17 10:44) Protime With Inr (06/23/17 10:44) Partial Thromboplastin Time (06/23/17 10:44) O2 (06/23/17 10:44) Saline Lock/Iv-Start (06/23/17 10:44) Vital Signs Adult Sepsis Patie Q1HR (06/23/17 10:44) Remove Rings In Anticipation O (06/23/17 10:44) Ns Iv 1000 Ml (Sodium Chloride 0.9%) (06/23/17 10:45) Methylprednisolone Sod Succ (Solu-Medrol (06/23/17 11:00) Albuterol Pre-Mix Nebs (Rt) (Proventil P (06/23/17 11:22) Ipratropium 0.02% Neb Solution (Atrovent (06/23/17 11:30) Svn Sm Volume Nebulizer Rt-Rfs (06/23/17 11:22) Svn Sm Volume Nebulizer Rt-Rfs (06/23/17 11:22) Ketorolac Injection (Toradol Injection) (06/23/17 12:00) Levofloxacin 750 Mg/150 Ml Iv (Levaquin (06/23/17 12:00) Lipase (06/23/17 12:34) Medications Given in ED Current Medications Medications Dose Ordered Sig/Arley Route Start Time Stop Time Status Last Admin Dose Admin Albuterol/ Ipratropium 3 ml ONCE ONCE INH 06/23/17 10:45 06/23/17 10:46 DC 06/23/17 10:39 3 ML Ipratropium [place] 0.5 mg ONCE ONCE IH 06/23/17 11:30 06/23/17 11:31 DC 06/23/17 12:17 0.5 MG Ketorolac Tromethamine 30 mg ONCE ONCE IVP 06/23/17 12:00 06/23/17 12:01 DC 06/23/17 12:32 30 MG Levofloxacin/ Dextrose 150 ml @ 100 mls/hr ONCE ONCE IV 06/23/17 12:00 06/23/17 13:29 06/23/17 12:32 100 MLS/HR Methylprednisolone Sodium Succinate 125 mg ONCE ONCE IVP 06/23/17 11:00 06/23/17 11:01 DC 06/23/17 11:25 125 MG Sodium Chloride 1,000 ml @ 0 mls/hr Q0M ONCE IV 06/23/17 10:45 06/23/17 10:46 DC 06/23/17 11:25 1,000 MLS/HR Vital Signs/I&O Vital Sign - Last 12Hours 06/23/17 06/23/17 06/23/17 06/23/17 10:25 10:25 10:40 12:22 Temp 97.5 Pulse 110 Resp 18 B/P (MAP) 126/59 Pulse Ox 98 95 98 O2 Delivery Room Air Nasal Cannula Nasal Cannula O2 Flow Rate 3.00 4.00 4.00 FiO2 95 06/23/17 12:32 Temp 97.5 Blood Pressure Mean: 81 Progress Note #1: Time: 11:25 Progress Note Septic workup labs have been reviewed. DuoNeb treatment has been administered. Solu-Medrol has been ordered. Patient was reassessed and lung sounds have improved significantly. There is still some residual wheezing and patient still has increased work of breathing. An hour long breathing treatment has been ordered. Case was reviewed with Dr. Sparrow who agrees with admission. PET scan was reviewed. There was an effusion on the left which may need to be drained. There were numerous hypermetabolic regions on the PET scan suggestive of widespread metastatic disease. UA and chest x-ray are pending. Progress Note #2: Time: 11:52 Progress Note X-rays have now been completed. There has been a rapid progression of infiltrate and/or effusion on the left lower lung. It is unclear if there is an infectious component. Levaquin will be initiated as a precaution. Blood cultures have been drawn. Lactic acid was normal. There was a leukocytosis but patient has been on steroid therapy. Toradol was given for pain as patient has narcotic allergies. I suspect patient's pain is related to metastatic disease given the findings on her PET scan. Dr. Sparrow is in agreement with initial antibiotic therapy. It is likely most of her symptoms including pain, hypoxia, and respiratory distress are in large part due to COPD exacerbation and pleural effusion. Dr. Sparrow will evaluate the pleural effusion to determine if thoracentesis is appropriate. He would like to patient in the ICU in preparation for procedures. I did discuss CODE STATUS with this patient and she wishes to remain a full code. Diagnostic Imaging Diagonstic Imaging: Xray Plain Films/CT/US/NM/MRI: chest Comments Chest x-ray viewed by me and report reviewed. Presence or absence of infiltrate is obscured by effusion and mass. See report below: NAME: RICHARD MOSLEY [facility] REC#: [id number] PT STATUS: REG ER : 1940 PHYSICIAN: NEY BARTH APRN ADMIT DATE: 06/23/17/ER Draft Date of Exam:06/23/17 CHEST 1 VIEW, AP/PA ONLY INDICATION: Progressive shortness of breath. COMPARISON: 06/11/2017. FINDINGS: Development of left lower lobe heterogeneous consolidations, some of which are confluent. Increased left perihilar heterogeneous opacities are also present. The paraspinal mass in left lower lobe is obscured. No pneumothorax. Possible small left pleural effusion. Normal heart size. Atherosclerotic aorta. IMPRESSION: 1. Development of left perihilar and basilar heterogeneous consolidations likely due to pneumonia. 2. Patient's known paraspinal mass lesion in the left lower lobe is obscured on this examination. 3. Probable small left pleural effusion. Dictated on workstation # [id number] Dict: 06/23/17 1216 Trans: 06/23/17 1220 [facility] [id number] Interpreted by: REJI ANDERSON MD Departure Communication Time/Spoke to Admitting Phy: 12:[address] Kenney Time/Spoke to Consulting Physi: 11:00 Communication/Consulting Dr. Sparrow Impression Impression: Primary Impression: COPD exacerbation Additional Impressions: Hypoxia Pleural effusion Lung mass Upper abdominal pain Disposition: ADMITTED INPATIENT Condition: Improved Decision to Admit Reason: Admit from ER (General) Decision to Admit/Date: Jun 23, 2017 Time/Decision to Admit Time: 11:00 Departure-Patient Inst. Referrals: REA MORFIN MD (PCP/Family) Primary Care Physician JADYN MOE MD Jun 23, 2017 11:50
[2017-06-23] MEDS ORDERED: KETOROLAC 30 MG/ML VIAL IVP ONE (12:00)
[2017-06-23] MEDS ORDERED: LEVOFLOXACIN 750 MG/150 ML IV 150 ML IV ONE (12:00)
--- NOTE | 2017-06-23 12:21 | Diagnostic Imaging Report ---
INDICATION: Progressive shortness of breath. COMPARISON: 06/11/2017. FINDINGS: Development of left lower lobe heterogeneous consolidations, some of which are confluent. Increased left perihilar heterogeneous opacities are also present. The paraspinal mass in left lower lobe is obscured. No pneumothorax. Possible small left pleural effusion. Normal heart size. Atherosclerotic aorta. IMPRESSION: 1. Development of left perihilar and basilar heterogeneous consolidations likely due to pneumonia. 2. Patient's known paraspinal mass lesion in the left lower lobe is obscured on this examination. 3. Probable small left pleural effusion. Dictated by: Dictated on workstation # [id number]
[2017-06-23] MEDS ORDERED: KETOROLAC 30 MG/ML VIAL IV PRN (13:45)
[2017-06-23] MEDS ORDERED: ONDANSETRON 4 MG/2 ML (SDV) Z0FRAN IV PRN (13:45)
[2017-06-23] MEDS ORDERED: RT-ALBUTEROL SULF 2.5 MG/3 ML PRE-MIX VIAL IH PRN (13:45)
[2017-06-23] MEDS ORDERED: CATHETER FLUSH 10 ML SYR IV PRN (14:00)
[2017-06-23] MEDS: RT-ALBUTEROL/IPRATROPIUM 3 ML (DUONEB) VIAL IH SCH ×3 (14:01→23:12)
[2017-06-23] MEDS ORDERED: TRAZ-28 PO (14:28)
[2017-06-23] MEDS ORDERED: IPRA3AMP IH (14:28)
[2017-06-23] MEDS ORDERED: ASPI-999 PO (14:28)
[2017-06-23] MEDS: PANTOPRAZOLE 40 MG/10 ML (PROTONIX) VIAL IV SCH (15:28)
[2017-06-23] MEDS: NS IV 1000 ML 1,000 ML IV SCH (15:28)
[2017-06-23] MEDS: methylPREDNISolone 40 MG/ML (Solu-MEDROL) VIAL IV SCH ×2 (18:08→23:29)
[2017-06-23 22:33] LABS: BILIRUBIN,URINE NEGATIVE (NEGATIVE); KETONES,URINE NEGATIVE (NEGATIVE); LEUKOCYTE ESTERASE ,URINE NEGATIVE (NEGATIVE); NITRITE,URINE NEGATIVE (NEGATIVE); PH,URINE 5 (5-9); PROTEIN,URINE 1+ (NEGATIVE); UROBILINOGEN,URINE 1 MG/DL (NORMAL)
[2017-06-23 22:42] LABS: SQUAMOUS EPITHELIAL CELL,UR 0-2 /HPF; WBC,URINE RARE /HPF
[2017-06-24] VITALS (23 sets, daily range): BP systolic 20–137; BP diastolic 55–90
[2017-06-24] MEDS: RT-ALBUTEROL/IPRATROPIUM 3 ML (DUONEB) VIAL IH SCH ×6 (02:12→21:34)
[2017-06-24 04:21] LABS: BASOPHILS % (AUTO) 0 % (0-10); EOSINOPHILS % (AUTO) 0 % (0-10); LYMPHOCYTES # (AUTO) 0.6 X 10^3 (1.0-4.0); LYMPHOCYTES % (AUTO) 4 % (12-44); MEAN CORPUSCULAR HEMOGLOBIN 30 PG (25-34); MEAN CORPUSCULAR HGB CONC 32 G/DL (32-36); MEAN CORPUSCULAR VOLUME 92 FL (80-99); MEAN PLATELET VOLUME 10.7 FL (7.4-10.4); MONOCYTES % (AUTO) 7 % (0-12); NEUTROPHILS # (AUTO) 12.9 X 10^3 (1.8-7.8); NEUTROPHILS % (AUTO) 89 % (42-75); PLATELET COUNT 288 10^3/uL (130-400); RED BLOOD COUNT 3.53 10^6/uL (4.35-5.85); RED CELL DISTRIBUTION WIDTH 13.8 % (10.0-14.5); WHITE BLOOD COUNT 14.4 10^3/uL (4.3-11.0)
[2017-06-24 04:35] LABS: ANION GAP 13 MMOL/L (5-14); BLOOD UREA NITROGEN 25 MG/DL (7-18); BUN/CREATININE RATIO 30; CALCIUM 10.6 MG/DL (8.5-10.1); CARBON DIOXIDE 22 MMOL/L (21-32); CHLORIDE 104 MMOL/L (98-107); CREATININE SERUM 0.84 MG/DL (0.60-1.30); GFR ESTIMATED > 60; GLUCOSE 167 MG/DL (70-105); MAGNESIUM 1.7 MG/DL (1.8-2.4); POTASSIUM 4.7 MMOL/L (3.6-5.0); SODIUM 139 MMOL/L (135-145)
[2017-06-24] MEDS: NS IV 1000 ML 1,000 ML IV SCH ×2 (04:43→18:15)
[2017-06-24] MEDS: POTASSIUM CL 10MEQ/50ML IVPB 50 ML IV SCH (05:15)
[2017-06-24] MEDS: MAGNESIUM 1 GM/100 ML IVPB 100 ML IV SCH ×3 (05:16→06:31)
[2017-06-24] MEDS: KCL 20 MEQ TAB (K-DUR) PO SCH (05:16)
[2017-06-24] MEDS: methylPREDNISolone 40 MG/ML (Solu-MEDROL) VIAL IV SCH ×3 (05:26→18:15)
[2017-06-24] MEDS: PANTOPRAZOLE 40 MG/10 ML (PROTONIX) VIAL IV SCH (08:15)
--- NOTE | 2017-06-24 08:34 | Pulmonary Consultation ---
History of Present Illness History of Present Illness Date of Consultation 06/24/17 08:29 Time Seen by Provider: 13:58 Date of Admission History of Present Illness 76-year-old woman presents to the emergency room in respiratory distress with significant wheezing and decreased air movement. Patient was hypoxic on room air with an oxygen saturation of 85 percent and tachycardic with heart rate of 113. Patient has not been able to eat or drink well and may be dry her family' s report. Patient complains of increased problems with abdominal pain and a left lower chest pain especially with breathing and position changes. The primary area of pain concerning her is near the left flank. She had diarrhea last week and has not had bowel movement since then. She denies any nausea, vomiting. She reports quitting smoking 2 weeks ago. Allergies and Home Medications Allergies Coded Allergies: cephalexin (Verified Allergy, Unknown, 04/02/09) penicillin G (Verified Allergy, Unknown, 01/28/09) tramadol (Unverified Adverse Reaction, Unknown, 01/04/15) ACTS GOOFY Home Medications Acetaminophen 500 Mg Tablet, 1,000 MG PO Q8H PRN for PAIN, (Reported) TAKES 2 (500MG) TABLETS Aspirin 81 Mg Tab.chew, 81 MG PO DAILY, (Reported) Budesonide/Formoterol Fumarate 10.2 Gm Hfa.aer.ad, 2 PUFF INH BID, (Reported) Docusate Sodium 100 Mg Cap, 100-300 MG PO HS, (Reported) TAKES 1 to 3 (100 MG) CAPSULES Famotidine 20 Mg Tablet, 20 MG PO BID, (Reported) Hydrocodone/Acetaminophen 1 Each Tablet, 1-2 EA PO Q6HR PRN for PAIN-MODERATE, # 30 Prescribed by: FERMÍN ARAUJO on 06/29/17 09 Ipratropium/Albuterol Sulfate 3 Ml Ampul.neb, 3 ML IH Q4H PRN for SHORTNESS OF BREATH for 8 Days, (Reported) Lactulose 20 Gm/30 Ml Solution, 10 GM PO BID for 30 Days Prescribed by: FERMÍN ARAUJO on 06/29/17911 Multivitamin with Minerals 1 Each Tablet, 1 TAB PO DAILY, (Reported) Prednisone 10 Mg Tab.ds.pk, 10 MG PO DAILY, #21 Take 6 tabs(60mg)daily,decrease by 1 tab(10MG)daily. Prescribed by: FERMÍN ARAUJO on 06/29/17 0912 Trazodone HCl 50 Mg Tablet, 25 MG PO HS, (Reported) TAKES 1/2 OF A (50 MG) TABLET Wheat Dextrin 236 Gm Powder, 2 TSP PO TIDWM, (Reported) Past Minmlhm-Mqydjb-Urojmu Hx Patient Social History Alcohol Use: Denies Use Recreational Drug Use: No Smoking Status: Former Smoker Type Used: Cigarettes 2nd Hand Smoke Exposure: Yes Recent Foreign Travel: No Contact w/Someone Who Travel: No Recent Infectious Disease Expo: No Recent Hopitalizations: No Physical Abuse Screen: No Sexual Abuse: No Immunizations Up To Date Tetanus Booster (TDap): Unknown PED Vaccines UTD: No Date of Pneumonia Vaccine: Aug 23, 2016 Date of Influenza Vaccine: Jul 23, 2016 Seasonal Allergies Seasonal Allergies: No Surgeries HX Surgeries: Yes Surgeries: Abdominal, Adenoidectomy, Appendectomy, Cardiac, Gallbladder, Hysterectomy, Joint Replacement, Orthopedic, Tonsillectomy, Vascular Surgery Respiratory Hx Respiratory Disorders: Yes Respiratory Disorders: Pneumonia, Chronic Bronchitis, Pulmonary Embolism, COPD Cardiovascular Hx Cardiac Disorders: Yes (CAROTID DISEASE, PERIPHERAL VASCULAR DISEASE WITH RIGHT LEG STENT 07/2016; ) Cardiac Disorders: Coronary Artery Disease, High Cholesterol, Hypertension, Peripheral Vascular Neurological Hx Neurological Disorders: Yes Neurological Disorders: Neuropathy 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 System Hx 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 Disorders: Yes (CERVICAL CANCER) Sexually Transmitted Disease: No HIV/AIDS: No Female 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 Disorders: 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, 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 Genitourinary Hx Genitourinary Disorders: Yes Genitourinary Disorders: Kidney Stones Gastrointestinal Hx Gastrointestinal Disorders: Yes Gastrointestinal Disorders: Gastroesophageal Reflux, Pancreatitis, Polyps, Ulcer Musculoskeletal Hx Musculoskeletal Disorders: Yes Musculoskeletal Disorders: Arthritis Endocrine Hx Endocrine Disorders: No HEENT HX ENT Disorders: Yes HEENT Disorders: Cataract Loss of Vision: Bilateral Hearing Impairment: Denies Cancer Hx Cancer: Yes Cancer: Liver, Lung, Skin, Cervical, Kidney Psychosocial Hx Psychiatric Problems: Yes Behavioral Health Disorders: Depression Integumentary HX Skin/Integumentary Disorder: Yes (FOOT ULCERS, FOOT CELLULITIS) Skin/Integumentary Disorders: Psoriasis Blood Transfusions Hx Blood Disorders: No Adverse Reaction to a Blood Tr: No Family Medical History Family Medial History: Cardiovascular disease 19 MOTHER, Onset:60 years & older Completed stroke 19 FATHER, Onset:50's - 60 Diabetes mellitus 19 MOTHER, Onset:50's - 60 FH: lung cancer G8 SISTER, Onset:Unknown FH: renal failure Gall bladder cancer G8 SISTER, Onset:60 years & older Hypercholesterolemia G8 BROTHER, Onset:Unknown Hypertension G8 BROTHER, Onset:Unknown Kidney disease 19 MOTHER, Onset:50's - 60 Lung G8 SISTER, Onset:Unknown Myocardial infarction 19 MOTHER, Onset:60 years & older G8 BROTHER, Onset:60 years & older Renal 19 MOTHER, Onset:50's - 60 (Mom was on dialysis.) Review of Systems Time Seen by Provider: 14:09 Constitutional: Sweats, Weakness, Malaise Respiratory: Cough, Dry, Shortness of breath Gastrointestinal: Nausea Exam Exam Vital Signs Date Time Temp Pulse Resp B/P (MAP) Pulse Ox O2 Delivery O2 Flow Rate FiO2 06/24/17 07:00 87 06/24/17 07:00 94 Nasal Cannula 3.00 06/24/17 06:00 88 26 116/75 92 Nasal Cannula 3.00 06/24/17 05:00 85 21 125/68 91 Nasal Cannula 3.00 06/24/17 04:00 95.3 06/24/17 04:00 83 21 115/59 91 Nasal Cannula 3.00 06/24/17 03:21 Nasal Cannula 3.00 06/24/17 03:00 86 22 97/55 93 Nasal Cannula 3.00 06/24/17 02:12 94 Nasal Cannula 3.00 06/24/17 02:00 85 10 116/70 06/24/17 01:00 92 25 126/77 93 Nasal Cannula 3.00 06/24/17 01:00 93 06/23/17 23:52 Nasal Cannula 3.00 06/23/17 23:49 95.7 91 26 108/67 94 Nasal Cannula 3.00 06/23/17 23:13 94 Nasal Cannula 3.00 06/23/17 23:00 86 18 108/67 94 Nasal Cannula 3.00 06/23/17 22:00 90 31 115/75 Nasal Cannula 3.00 06/23/17 21:00 91 13 115/65 93 Nasal Cannula 3.00 06/23/17 20:18 96.8 96 20 113/64 94 Nasal Cannula 3.00 06/23/17 19:40 Nasal Cannula 3.00 06/23/17 19:00 99 06/23/17 19:00 97 21 126/86 91 Nasal Cannula 2.00 06/23/17 18:39 97 Nasal Cannula 4.00 06/23/17 18:00 94 26 119/74 93 Nasal Cannula 2.00 06/23/17 17:00 96 27 103/64 94 Nasal Cannula 2.00 06/23/17 16:00 98 29 99/62 94 Nasal Cannula 2.00 06/23/17 16:00 96.9 Nasal Cannula 2.00 06/23/17 16:00 Nasal Cannula 2.00 06/23/17 15:00 105 10 122/61 94 Nasal Cannula 2.00 06/23/17 14:02 94 Nasal Cannula 4.00 06/23/17 14:00 105 30 110/63 94 Nasal Cannula 2.00 06/23/17 13:34 110 06/23/17 13:21 97.5 95 18 98 Nasal Cannula 4.00 06/23/17 13:20 Nasal Cannula 2.00 06/23/17 13:20 97.0 Nasal Cannula 2.00 06/23/17 12:32 97.5 06/23/17 12:22 98 Nasal Cannula 4.00 06/23/17 10:40 95 Nasal Cannula 4.00 06/23/17 10:25 97.5 110 18 126/59 98 Room Air 06/23/17 10:25 3.00 95 I & O 06/24/17 07:00 Intake Total 2300 ml Output Total 575 ml Balance 1725 ml General Appearance: WD/WN, Mild Distress HEENT: PERRL/EOMI, Normal ENT Inspection Neck: Normal Inspection Respiratory: Accessory Muscle Use, No Crackles, Respiratory Distress, Wheezing Cardiovascular: No Edema, No Murmur, Tachycardia Capillary Refill: Less Than 3 Seconds Extremity: Normal Inspection, Non Tender, No Calf Tenderness, No Pedal Edema, Other (negative Mehul) Neurologic/Psychiatric: Alert, Oriented x3, No Motor/Sensory Deficits, Normal 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 I d/w her brother who is an anesthesiologist in [place]. he also agrees she does not have a true allergy to Codeine, Hydrocodone, morphine, oxycodone. We are going to trial her on Vicodin and monitor in ICU. 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 She is going to need pain meds moving forward. PNA possible postobstructive PNA -Continue COPDAE -solumedrol -SVNS Total time spent with patient is 120min discussing with patient, RN, hospitalist , pharmacy, brother (over phone), and daughter at bedside. Clinical Quality Measures DVT/VTE Risk/Contraindication: Risk Factor Score Per Nursin RFS Level Per Nursing on Admit: 2=Moderate ELBA FORD DO Jun 24, 2017 08:34
[2017-06-24] MEDS: LEVOFLOXACIN 750 MG/150 ML IV 150 ML IV SCH (09:23)
[2017-06-24] MEDS ORDERED: ACETAMINOPHEN 500 MG TAB (TYLENOL) PO PRN (09:30)
[2017-06-24] MEDS ORDERED: RT-ALBUTEROL/IPRATROPIUM 3 ML (DUONEB) VIAL IH PRN (09:30)
[2017-06-24] MEDS: BISACODYL 10 MG SUPP (DULCOLAX) PR SCH (09:30)
--- NOTE | 2017-06-24 10:25 | Diagnostic Imaging Report ---
INDICATION: Dyspnea. TECHNIQUE: Single view chest 4:15 AM. CORRELATION STUDY: 06/23/2017 FINDINGS: Increasing opacification the left lower hemithorax is likely owing to a combination of effusion along with consolidation and/or infiltrate. Underlying cavitary or cystic process however is not excluded. Right lung is hyperinflated. Heart size and mediastinum are generally stable. IMPRESSION: Increasing opacification of the left hemithorax, likely owing to underlying effusion along with infiltrate. Developing cavitation component is not excluded. Dictated by: Dictated on workstation # [id number]
--- NOTE | 2017-06-24 10:43 | History & Physical-Hospitalist ---
HPI History of Present Illness: HPI/Chief Complaint CC: SOB HPI: This is a 76 [address] Becker who presented to the ER due to SOB. PET scan, completed recently, showed multiple CA masses in lungs. 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 Sparrow and ca discussed with pt and family Pt states she has not had a BM Home meds reconciled Protonix was administered instead of Pepcid Patient Interview: BM meds and home meds discussed Pt confirms wearing O2 at night Physical exam stable. Pt states that she breathes better when she is not moving. The fluid on her lung was discussed and she was informed that it will be removed by Dr. Sparrow. Pt states that she would like to search for another PCP Scribed by Brittany Ash under the direct supervision of Dr. Araujo. Source: patient Exam Limitations: no limitations Date Seen 06/24/17 Time Seen by Provider: 09:00 Attending Physician Joy Araujo DO PCP Vandana Becker MD Referring Physician Date of Admission Jun 23, 2017 at 12:32 Home Medications & Allergies Home Medications Reviewed patient Home Medication Reconciliation Form Allergies Allergies Coded Allergies cephalexin (Verified Allergy, Unknown, 04/02/09) codeine (Verified Allergy, Unknown, 01/28/09) hydrocodone (Verified Allergy, Unknown, chest tightness, 05/03/16) morphine (Verified Allergy, Unknown, 01/28/09) oxycodone (Verified Allergy, Unknown, chest tightness, 05/03/16) penicillin G (Verified Allergy, Unknown, 01/28/09) tramadol (Unverified Adverse Reaction, Unknown, 01/04/15) ACTS GOOFY Past Puntlwx-Agfvui-Xedvzy Hx Patient Social History Alcohol Use: Denies Use Recreational Drug Use: No Smoking Status: Former Smoker Type Used: Cigarettes 2nd Hand Smoke Exposure: Yes Physical Abuse Screen: No Sexual Abuse: No Recent Foreign Travel: No Contact w/other who traveled: No Recent Hopitalizations: No Recent Infectious Disease Expo: No Immunizations Up To Date Tetanus Booster (TDap): Unknown Date of Pneumonia Vaccine: Aug 23, 2016 Date of Influenza Vaccine: Jul 23, 2016 Seasonal Allergies Seasonal Allergies: No Surgeries HX Surgeries: Yes Surgeries: Abdominal, Adenoidectomy, Appendectomy, Cardiac, Gallbladder, Hysterectomy, Joint Replacement, Orthopedic, Tonsillectomy, Vascular Surgery Respiratory Hx Respiratory Disorders: Yes Respiratory Disorders: COPD, Sleep Apnea Cardiovascular Hx Cardiovascular Disorders: Yes (CAROTID DISEASE, PERIPHERAL VASCULAR DISEASE WITH RIGHT LEG STENT 07/2016; ) Cardiac Disorders: Coronary Artery Disease, High Cholesterol, Hypertension, Peripheral Vascular Neurological Hx Neurological Disorders: Yes Neurological Disorders: Neuropathy 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 System Hx 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 Disorders: Yes (CERVICAL CANCER) Sexually Transmitted Disease: No HIV/AIDS: No Female 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 Disorders: Denies Genitourinary Hx Genitourinary Disorders: Yes Genitourinary Disorders: Kidney Stones Gastrointestinal Hx Gastrointestinal Disorders: Yes Gastrointestinal Disorders: Gastroesophageal Reflux, Pancreatitis, Polyps, Ulcer Musculoskeletal Hx Musculoskeletal Disorders: Yes Musculoskeletal Disorders: Arthritis Endocrine Hx Endocrine Disorders: No HEENT HX ENT Disorders: Yes HEENT Disorders: Cataract Loss of Vision: Bilateral Hearing Impairment: Denies Cancer Hx Cancer: Yes Cancer: Liver, Lung, Skin, Cervical, Kidney Psychosocial Hx Psychiatric Problems: Yes Behavioral Health Disorders: Depression Integumentary HX Skin/Integumentary Disorder: Yes (FOOT ULCERS, FOOT CELLULITIS) Skin/Integumentary Disorders: Psoriasis Blood Transfusions Hx Blood Disorders: No Adverse Reaction to a Blood Tr: No Family Medical History Family Hx: Cardiovascular disease 19 MOTHER, Onset:60 years & older Completed stroke 19 FATHER, Onset:50's - 60 Diabetes mellitus 19 MOTHER, Onset:50's - 60 FH: lung cancer G8 SISTER, Onset:Unknown FH: renal failure Gall bladder cancer G8 SISTER, Onset:60 years & older Hypercholesterolemia G8 BROTHER, Onset:Unknown Hypertension G8 BROTHER, Onset:Unknown Kidney disease 19 MOTHER, Onset:50's - 60 Lung G8 SISTER, Onset:Unknown Myocardial infarction 19 MOTHER, Onset:60 years & older G8 BROTHER, Onset:60 years & older Renal 19 MOTHER, Onset:50's - 60 (Mom was on dialysis.) Review of Systems Constitutional: see HPI, weakness EENTM: no symptoms reported Respiratory: short of breath Cardiovascular: no symptoms reported Gastrointestinal: no symptoms reported Musculoskeletal: no symptoms reported Skin: no symptoms reported Psychiatric/Neurological: No Symptoms Reported All Other Systems Reviewed Negative Unless Noted: Yes Physical Exam Physical Exam Vital Signs Vital Sign - Last 12Hours 06/23/17 10:25 Temp 97.5 Pulse 110 Resp 18 B/P (MAP) 126/59 Pulse Ox 98 O2 Delivery Room Air O2 Flow Rate 3.00 FiO2 95 Capillary Refill : Less Than 3 Seconds General Appearance: No Apparent Distress, WD/WN, Chronically ill, Thin Eyes: Bilateral Eye Normal Inspection, Bilateral Eye PERRL HEENT: PERRL/EOMI, Normal ENT Inspection, Pharynx Normal Neck: Full Range of Motion, Normal Inspection, Non Tender, Supple, Carotid Bruit Respiratory: Chest Non Tender, No Accessory Muscle Use, No Respiratory Distress , Crackles, Decreased Breath Sounds Cardiovascular: Regular Rate, Rhythm, No Edema, No Gallop, No JVD, No Murmur, Normal Peripheral Pulses Gastrointestinal: Normal Bowel Sounds, No Organomegaly, No Pulsatile Mass, Non Tender, Soft Back: Normal Inspection, No CVA Tenderness, No Vertebral Tenderness Extremity: Normal Capillary Refill, Normal Inspection, Normal Range of Motion, Non Tender, No Calf Tenderness, No Pedal Edema Neurologic/Psychiatric: Alert, Oriented x3, No Motor/Sensory Deficits, Normal Mood/Affect Skin: Normal Color, Warm/Dry Lymphatic: No Adenopathy Results Results/Procedures Lab Laboratory Tests 06/23/17 11:07 06/24/17 03:30 Assessment/Plan Admission Diagnosis A/P: AECOPD w/pneumonia and pleural effusion in need of thoracentesis and cytology dx of presumed lung cancer with PET scan revealing multiple lung nodules s/p Right foot cellulitis with abscesses and callouses and 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 s/p I&D Dr Ndiaye admission s/p Right lower lobe pneumonia admitted 06/25/16 and completed Levaquin s/p UTI's (urinary tract infection) s/p recurrent pyelonephritis s/p falls with no fracture 06/24/16 prompting ER admit Smoker 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 and required steroids at [place] 06/26/16 FRITZ noncompliant with C Pap Depression Severe neuropathy with multiple falls in the past Acute constipation Assessment and Plan Plan: Thoracentesis with Dr. Sparrow today or tomorrow am BM meds Pain meds prn Palliative care consult Cytology Monitor CXR Poor prognosis Clinical Quality Measures DVT/VTE Risk/Contraindication: Risk Factor Score Per Nursin RFS Level Per Nursing on Admit: 2=Moderate JOY ARAUJO DO Jun 24, 2017 10:43
[2017-06-24] MEDS: SENNA W/DOCUSATE (SENOKOT S) TABLET PO SCH ×2 (10:45→22:15)
[2017-06-24] MEDS: LACTULOSE SYRUP 10GM/15ML (ENULOSE) 30ML UDC PO SCH ×2 (10:45→22:16)
[2017-06-24] MEDS: HYDROcodone/APAP 7.5 MG/325 MG (LORTAB, LORCET PLUS) TABLET PO PRN (10:46)
[2017-06-24] MEDS: RT-ADVAIR HFA 115/21 MCG PER PUFF IH SCH (19:16)
[2017-06-24] MEDS: traZODone 50 MG (DESYREL) TAB PO SCH (22:15)
[2017-06-24] MEDS: DOCUSATE SODIUM 100 MG (COLACE) CAP PO SCH (22:15)
[2017-06-24] MEDS: FAMOTIDINE 20 MG (PEPCID) TABLET PO SCH (22:16)
[2017-06-25] VITALS (17 sets, daily range): BP systolic 94–130; BP diastolic 58–85
[2017-06-25] MEDS: methylPREDNISolone 40 MG/ML (Solu-MEDROL) VIAL IV SCH ×5 (01:08→23:38)
[2017-06-25] MEDS: RT-ALBUTEROL/IPRATROPIUM 3 ML (DUONEB) VIAL IH SCH ×6 (02:00→21:53)
[2017-06-25] MEDS: NS IV 1000 ML 1,000 ML IV SCH ×3 (02:00→11:29)
[2017-06-25 03:33] LABS: BASOPHILS % (AUTO) 0 % (0-10); EOSINOPHILS % (AUTO) 0 % (0-10); LYMPHOCYTES # (AUTO) 0.6 X 10^3 (1.0-4.0); LYMPHOCYTES % (AUTO) 3 % (12-44); MEAN CORPUSCULAR HEMOGLOBIN 30 PG (25-34); MEAN CORPUSCULAR HGB CONC 33 G/DL (32-36); MEAN CORPUSCULAR VOLUME 92 FL (80-99); MEAN PLATELET VOLUME 10.3 FL (7.4-10.4); MONOCYTES # (AUTO) 1.5 X 10^3 (0.0-1.0); MONOCYTES % (AUTO) 6 % (0-12); NEUTROPHILS # (AUTO) 21.6 X 10^3 (1.8-7.8); NEUTROPHILS % (AUTO) 91 % (42-75); PLATELET COUNT 334 10^3/uL (130-400); RED BLOOD COUNT 3.41 10^6/uL (4.35-5.85); RED CELL DISTRIBUTION WIDTH 13.9 % (10.0-14.5); WHITE BLOOD COUNT 23.8 10^3/uL (4.3-11.0)
[2017-06-25 03:44] LABS: ANION GAP 15 MMOL/L (5-14); BLOOD UREA NITROGEN 20 MG/DL (7-18); BUN/CREATININE RATIO 26; CALCIUM 10.7 MG/DL (8.5-10.1); CARBON DIOXIDE 19 MMOL/L (21-32); CHLORIDE 107 MMOL/L (98-107); CREATININE SERUM 0.76 MG/DL (0.60-1.30); GFR ESTIMATED > 60; GLUCOSE 130 MG/DL (70-105); PHOSPHORUS 4.1 MG/DL (2.3-4.7); POTASSIUM 4.6 MMOL/L (3.6-5.0); SODIUM 141 MMOL/L (135-145)
[2017-06-25] MEDS: HYDROcodone/APAP 7.5 MG/325 MG (LORTAB, LORCET PLUS) TABLET PO PRN (03:50)
[2017-06-25] MEDS: POTASSIUM CL 10MEQ/50ML IVPB 50 ML IV SCH (04:00)
[2017-06-25] MEDS: KCL 20 MEQ TAB (K-DUR) PO SCH (04:01)
[2017-06-25] MEDS: MAGNESIUM 1 GM/100 ML IVPB 100 ML IV SCH (04:01)
[2017-06-25 04:25] LABS: BAND NEUTROPHILS 6 %; BASOPHILS % (MANUAL) 0 %; EOSINOPHILS % (MANUAL) 0 %; LYMPHOCYTES % (MANUAL) 1 %; NEUTROPHILS % (MANUAL) 91 %
[2017-06-25] MEDS: MULTIVIT W/MINERALS TAB (THERAGRAN M) PO SCH ×2 (06:01→09:35)
--- NOTE | 2017-06-25 06:28 | Pulmonary Progress Note ---
Subjective Time Seen by Provider: 06:23 Subjective/Events-last exam No complications noted. Pt has agreed to thoracentesis Exam Exam Vital Signs Date Time Temp Pulse Resp B/P (MAP) Pulse Ox O2 Delivery O2 Flow Rate FiO2 06/25/17 04:00 80 23 117/70 90 Nasal Cannula 2.00 06/25/17 04:00 Nasal Cannula 3.00 06/25/17 03:00 82 25 130/78 91 Nasal Cannula 2.00 06/25/17 02:01 93 Nasal Cannula 2.00 06/25/17 02:00 73 21 119/63 92 Nasal Cannula 2.00 06/25/17 01:00 78 19 99/62 92 Nasal Cannula 2.00 06/25/17 01:00 78 06/25/17 00:00 79 20 94/58 93 Nasal Cannula 2.00 06/25/17 00:00 Nasal Cannula 3.00 06/24/17 23:00 87 28 114/65 89 Nasal Cannula 2.00 06/24/17 22:00 85 23 105/63 91 Nasal Cannula 2.00 06/24/17 21:35 94 Nasal Cannula 3.00 06/24/17 21:00 90 25 20/69 91 Nasal Cannula 3.00 06/24/17 20:00 Nasal Cannula 3.00 06/24/17 20:00 92 25 114/69 93 Nasal Cannula 3.00 06/24/17 20:00 Nasal Cannula 3.00 06/24/17 19:16 93 Nasal Cannula 3.00 06/24/17 19:00 96 28 125/76 88 Nasal Cannula 3.00 06/24/17 19:00 97 06/24/17 18:00 92 22 116/74 92 Nasal Cannula 3.00 06/24/17 17:00 87 22 111/66 93 Nasal Cannula 3.00 06/24/17 16:29 97.4 06/24/17 16:00 Nasal Cannula 3.00 06/24/17 16:00 116 35 135/86 93 Nasal Cannula 3.00 06/24/17 15:00 93 20 111/71 92 Nasal Cannula 3.00 06/24/17 14:21 90 Nasal Cannula 3.00 06/24/17 14:00 89 23 128/83 92 Nasal Cannula 3.00 06/24/17 13:00 91 23 120/68 92 Nasal Cannula 3.00 06/24/17 13:00 91 06/24/17 12:00 Nasal Cannula 3.00 06/24/17 12:00 93 22 111/69 92 Nasal Cannula 3.00 06/24/17 11:53 97.3 06/24/17 11:00 96 27 109/83 94 Nasal Cannula 3.00 06/24/17 10:54 96 Nasal Cannula 3.00 06/24/17 10:00 89 11 115/74 93 Nasal Cannula 3.00 06/24/17 09:00 99 20 136/80 92 Nasal Cannula 3.00 06/24/17 08:00 97.7 96 22 137/90 93 Nasal Cannula 3.00 06/24/17 08:00 Nasal Cannula 3.00 06/24/17 07:00 87 13 127/78 94 Nasal Cannula 3.00 06/24/17 07:00 87 06/24/17 07:00 94 Nasal Cannula 3.00 I & O 06/25/17 07:00 Intake Total 890 ml Output Total 1675 ml Balance -785 ml General Appearance: No Apparent Distress, WD/WN, Chronically ill, Thin HEENT: PERRL/EOMI, Normal ENT Inspection, Pharynx Normal Neck: Full Range of Motion, Normal Inspection, Non Tender, Supple, Carotid Bruit Respiratory: Chest Non Tender, No Accessory Muscle Use, No Respiratory Distress , Crackles, Decreased Breath Sounds Cardiovascular: Regular Rate, Rhythm, No Edema, No Gallop, No JVD, No Murmur, Normal Peripheral Pulses Capillary Refill: Less Than 3 Seconds Extremity: Normal Capillary Refill, Normal Inspection, Normal Range of Motion, Non Tender, No Calf Tenderness, No Pedal Edema Neurologic/Psychiatric: Alert, Oriented x3, No Motor/Sensory Deficits, Normal Mood/Affect Skin: Normal Color, Warm/Dry Lymphatic: No Adenopathy Results Lab Laboratory Tests 06/23/17 11:07 06/24/17 03:30 06/25/17 03:06 Assessment/Plan Assessment/Plan -Probable metastatic lung cancer with positive PET -We need tissue BX -Will do thoracentesis today -Pain control - I believe her allergies are sensitivities not true allergies. I d/w her brother who is an anesthesiologist in [place]. he also agrees she does not have a true allergy to Codeine, Hydrocodone, morphine, oxycodone. We are going to trial her on Vicodin and monitor in ICU. 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 She is going to need pain meds moving forward. PNA possible postobstructive PNA -Continue COPDAE -solumedrol -SVNS 233 Clinical Quality Measures DVT/VTE Risk/Contraindication: Risk Factor Score Per Nursin RFS Level Per Nursing on Admit: 2=Moderate ELBA FORD DO Jun 25, 2017 06:27
[2017-06-25] MEDS ORDERED: LIDOCAINE 1% INJ 20 ML (XYLOCAINE) VIAL ONE (06:41)
[2017-06-25] MEDS: RT-ADVAIR HFA 115/21 MCG PER PUFF IH SCH ×2 (06:47→18:26)
--- NOTE | 2017-06-25 07:22 | Pulmonary Procedures ---
Pulmonary Procedures Date of Procedure Date of Service: Jun 25, 2017 Procedure: Left US guided complex thoracentesis Preop DX: pleural effusion post op DX: Same (1700cc of bloody fluid obtained) Complications: None After informed consent obtained US was used to localize pleural fluid. Pt has [ bilateral L>R] pleural effusions. Skin was anesthetized at approximately the 10th ICS posterior axillary line. Thoracentesis needle was advanced through the 10th ICS posterior axillary line. Needle was removed and catheter left in place.1700cc of bloody fluid obtained using vacuum bottles. Catheter was then removed. Pt tolerated procedure well. No complications noted. ELBA FORD DO Jun 25, 2017 07:22
--- NOTE | 2017-06-25 07:26 | Diagnostic Imaging Report ---
INDICATION: Status post left thoracentesis. COMPARISON: 06/25/2017 at 4:33 AM. FINDINGS: Marked decrease in size of left pleural effusion. No pneumothorax. Left basilar heterogeneous opacities are present. Right lung remains unchanged with scattered linear opacities. No right pneumothorax. Stable cardiomediastinal silhouette. IMPRESSION: 1. Marked decrease in size of left pleural effusion status post thoracentesis. No pneumothorax. 2. Improved aeration of the left lung base with residual foci of atelectasis. However, underlying infection could also be present. Dictated by: Dictated on workstation # [id number]
--- NOTE | 2017-06-25 08:10 | Diagnostic Imaging Report ---
EXAMINATION: Portable upright radiograph of the chest. INDICATION: Dyspnea. FINDINGS: The left lung demonstrate a large effusion obscuring the mid and lower left lung zones. No significant change from 06/24/17. The right lung is clear. The heart border is obscured. No effusion or pneumothorax. The mediastinum and norma appear unremarkable. IMPRESSION: Large left pleural effusion obscuring the mid and lower left lung zones. No significant change. Dictated by: Dictated on workstation # [id number]
[2017-06-25 08:27] LABS: GLUCOSE,BODY FLUID 122 MG/DL; LDH,BODY FLUID 466 U/L
[2017-06-25] MEDS: LACTULOSE SYRUP 10GM/15ML (ENULOSE) 30ML UDC PO SCH ×2 (09:33→20:47)
[2017-06-25] MEDS: PANTOPRAZOLE 40 MG/10 ML (PROTONIX) VIAL IV SCH (09:33)
[2017-06-25] MEDS: BISACODYL 10 MG SUPP (DULCOLAX) PR SCH (09:35)
[2017-06-25] MEDS: SENNA W/DOCUSATE (SENOKOT S) TABLET PO SCH ×2 (09:35→20:47)
[2017-06-25] MEDS: FAMOTIDINE 20 MG (PEPCID) TABLET PO SCH ×2 (09:36→20:47)
--- NOTE | 2017-06-25 11:40 | Progress Note-Hospitalist ---
Progress Note HPI/CC on Admission CC: SOB HPI: This is a 76 yoWF pt of [address] Becker who presented to the ER due to SOB. PET scan, completed recently, showed multiple CA masses in lungs. 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 Sparrow and ca discussed with pt and family Pt states she has not had a BM Home meds reconciled Protonix was administered instead of Pepcid Patient Interview: BM meds and home meds discussed Pt confirms wearing O2 at night Physical exam stable. Pt states that she breathes better when she is not moving. The fluid on her lung was discussed and she was informed that it will be removed by Dr. Sparrow. Pt states that she would like to search for another PCP Scribed by Brittany Ash under the direct supervision of Dr. Araujo. Progress Notes/Assess & Plan Date Seen 06/25/17 Time Seen by Provider: 10:45 Admission Dx/Process A/P: AECOPD w/pneumonia and pleural effusion in need of thoracentesis and cytology dx of presumed lung cancer with PET scan revealing multiple lung nodules s/p Right foot cellulitis with abscesses and callouses and 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 s/p I&D Dr Ndiaye admission s/p Right lower lobe pneumonia admitted 06/25/16 and completed Levaquin s/p UTI's (urinary tract infection) s/p recurrent pyelonephritis s/p falls with no fracture 06/24/16 prompting ER admit Smoker 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 and required steroids at DC 06/26/16 FRITZ noncompliant with C Pap Depression Severe neuropathy with multiple falls in the past Acute constipation Diagonsis/Assessment & Plan Removed 1700 mL of bloody malignant-appearing pleural fluid from thoracentesis today by Dr. Sparrow She did not suffer a pneumothorax Patient feels much better and hasn't been able to walk around for 1 month due to shortness of breath that is now resolved No bowel movement yet even though multiple meds have been given No pain is reported Updated her on the fact that I would likely need to keep her until first of the week due to the IV antibiotics and pleural fluid and monitoring chest x-rays and labs and IV steroids and she is agreeable Will need home oxygen evaluation at discharge No fever, vital signs stable, pleasant, improved, chronically ill, very debilitated Regular rate and rhythm, diminished breath sounds in the bases No edema Laboratory Tests 06/25/17 03:06 A/P: AECOPD w/pneumonia and pleural effusion s/p thoracentesis but cytology pending but it was a bloody malignant-appearing fluid and PET scan revealing multiple lung nodules s/p Right foot cellulitis with abscesses and callouses and 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 s/p I&D Dr Ndiaye admission s/p Right lower lobe pneumonia admitted 06/25/16 and completed Levaquin s/p UTI's (urinary tract infection) s/p recurrent pyelonephritis s/p falls with no fracture 06/24/16 prompting ER admit Smoker 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 and required steroids at DC 06/26/16 FRITZ noncompliant with C Pap Depression Severe neuropathy with multiple falls in the past Acute constipation still unresolved so now ordered SSE Acute leukocytosis due to steroids Plan: Thoracentesis results per Dr. Sparrow BM meds and add SSE Pain meds prn Palliative care consult and that has been completed but still full code Cytology pending Monitor CXR for PTX since thoracentesis Poor prognosis overall Move to 4 th floor FERMÍN ARAUJO DO Jun 25, 2017 11:40
[2017-06-25] MEDS: DOCUSATE SODIUM 100 MG (COLACE) CAP PO SCH (20:47)
[2017-06-25] MEDS: traZODone 50 MG (DESYREL) TAB PO SCH (20:47)
[2017-06-26] VITALS (7 sets, daily range): BP systolic 103–135; BP diastolic 58–74
[2017-06-26] MEDS: NS IV 1000 ML 1,000 ML IV SCH (01:29)
[2017-06-26] MEDS: RT-ALBUTEROL/IPRATROPIUM 3 ML (DUONEB) VIAL IH SCH ×6 (02:23→21:55)
[2017-06-26 04:59] LABS: BASOPHILS % (AUTO) 0 % (0-10); EOSINOPHILS % (AUTO) 0 % (0-10); LYMPHOCYTES # (AUTO) 0.6 X 10^3 (1.0-4.0); LYMPHOCYTES % (AUTO) 3 % (12-44); MEAN CORPUSCULAR HEMOGLOBIN 30 PG (25-34); MEAN CORPUSCULAR HGB CONC 32 G/DL (32-36); MEAN CORPUSCULAR VOLUME 91 FL (80-99); MEAN PLATELET VOLUME 10.4 FL (7.4-10.4); MONOCYTES # (AUTO) 1.4 X 10^3 (0.0-1.0); MONOCYTES % (AUTO) 7 % (0-12); NEUTROPHILS # (AUTO) 18.3 X 10^3 (1.8-7.8); NEUTROPHILS % (AUTO) 90 % (42-75); PLATELET COUNT 325 10^3/uL (130-400); RED BLOOD COUNT 3.66 10^6/uL (4.35-5.85); WHITE BLOOD COUNT 20.3 10^3/uL (4.3-11.0)
[2017-06-26] MEDS: methylPREDNISolone 40 MG/ML (Solu-MEDROL) VIAL IV SCH ×2 (05:01→20:58)
[2017-06-26] MEDS: HYDROcodone/APAP 7.5 MG/325 MG (LORTAB, LORCET PLUS) TABLET PO PRN ×2 (05:17→19:03)
[2017-06-26 05:22] LABS: ANION GAP 11 MMOL/L (5-14); BLOOD UREA NITROGEN 19 MG/DL (7-18); BUN/CREATININE RATIO 26; CALCIUM 10.4 MG/DL (8.5-10.1); CARBON DIOXIDE 21 MMOL/L (21-32); CHLORIDE 109 MMOL/L (98-107); CREATININE SERUM 0.73 MG/DL (0.60-1.30); GFR ESTIMATED > 60; GLUCOSE 131 MG/DL (70-105); POTASSIUM 4.4 MMOL/L (3.6-5.0); SODIUM 141 MMOL/L (135-145)
[2017-06-26] MEDS: RT-ADVAIR HFA 115/21 MCG PER PUFF IH SCH ×2 (06:36→18:28)
[2017-06-26] MEDS: SENNA W/DOCUSATE (SENOKOT S) TABLET PO SCH ×2 (09:25→20:58)
[2017-06-26] MEDS: LACTULOSE SYRUP 10GM/15ML (ENULOSE) 30ML UDC PO SCH ×2 (09:25→20:58)
[2017-06-26] MEDS: FAMOTIDINE 20 MG (PEPCID) TABLET PO SCH ×2 (09:25→20:58)
[2017-06-26] MEDS: BISACODYL 10 MG SUPP (DULCOLAX) PR SCH (09:25)
[2017-06-26] MEDS: LEVOFLOXACIN 750 MG/150 ML IV 150 ML IV SCH (09:25)
--- NOTE | 2017-06-26 11:39 | Progress Note-Hospitalist ---
Progress Note HPI/CC on Admission CC: SOB HPI: This is a 76 yoWF pt of Dr[address] Becker who presented to the ER due to SOB. PET scan, completed recently, showed multiple CA masses in lungs. 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 Sparrow and ca discussed with pt and family Pt states she has not had a BM Home meds reconciled Protonix was administered instead of Pepcid Patient Interview: BM meds and home meds discussed Pt confirms wearing O2 at night Physical exam stable. Pt states that she breathes better when she is not moving. The fluid on her lung was discussed and she was informed that it will be removed by Dr. Sparrow. Pt states that she would like to search for another PCP Scribed by Brittany Ash under the direct supervision of Dr. Araujo. Progress Notes/Assess & Plan Date Seen 06/26/17 Time Seen by Provider: 10:00 Admission Dx/Process A/P: AECOPD w/pneumonia and pleural effusion in need of thoracentesis and cytology dx of presumed lung cancer with PET scan revealing multiple lung nodules s/p Right foot cellulitis with abscesses and callouses and 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 s/p I&D Dr Ndiaye admission s/p Right lower lobe pneumonia admitted 06/25/16 and completed Levaquin s/p UTI's (urinary tract infection) s/p recurrent pyelonephritis s/p falls with no fracture 06/24/16 prompting ER admit Smoker 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 and required steroids at DC 06/26/16 FRITZ noncompliant with C Pap Depression Severe neuropathy with multiple falls in the past Acute constipation Diagonsis/Assessment & Plan Doing well since thoracentesis yesterday when Dr Sparrow removed 1700cc of bloody fluid BM multiple since many meds were given the past 2 days since she had not had a BM for 8 days Eating well Breathing well No fever, vital signs stable, pleasant, improved, chronically ill, very debilitated, sitting on toilet Regular rate and rhythm, diminished breath sounds in the bases No edema Laboratory Tests 06/26/17 04:37 A/P: AECOPD w/pneumonia and left sided pleural effusion s/p thoracentesis but cytology pending but it was a bloody malignant-appearing fluid and PET scan revealing multiple lung nodules s/p Right foot cellulitis with abscesses and callouses and 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 s/p I&D Dr Ndiaye admission s/p Right lower lobe pneumonia admitted 06/25/16 and completed Levaquin s/p UTI's (urinary tract infection) s/p recurrent pyelonephritis s/p falls with no fracture 06/24/16 prompting ER admit Smoker 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 and required steroids at DC 06/26/16 FRITZ noncompliant with C Pap Depression Severe neuropathy with multiple falls in the past Acute constipation now resolved Acute leukocytosis due to steroids Plan: Thoracentesis results per Dr. Sparrow Pain meds prn Palliative care consult and that has been completed but still full code Cytology pending Monitor CXR for PTX since thoracentesis Poor prognosis overall [place] Wednesday FERMÍN ARAUJO DO Jun 26, 2017 11:39
[2017-06-26] MEDS: traZODone 50 MG (DESYREL) TAB PO SCH (20:58)
[2017-06-26] MEDS: DOCUSATE SODIUM 100 MG (COLACE) CAP PO SCH (20:59)
[2017-06-27] MEDS: RT-ALBUTEROL/IPRATROPIUM 3 ML (DUONEB) VIAL IH SCH ×6 (02:14→22:26)
[2017-06-27 05:19] LABS: BASOPHILS % (AUTO) 0 % (0-10); EOSINOPHILS % (AUTO) 0 % (0-10); LYMPHOCYTES # (AUTO) 0.9 X 10^3 (1.0-4.0); LYMPHOCYTES % (AUTO) 5 % (12-44); MEAN CORPUSCULAR HEMOGLOBIN 30 PG (25-34); MEAN CORPUSCULAR HGB CONC 33 G/DL (32-36); MEAN CORPUSCULAR VOLUME 92 FL (80-99); MEAN PLATELET VOLUME 10.3 FL (7.4-10.4); MONOCYTES # (AUTO) 1.4 X 10^3 (0.0-1.0); MONOCYTES % (AUTO) 8 % (0-12); NEUTROPHILS # (AUTO) 16.5 X 10^3 (1.8-7.8); NEUTROPHILS % (AUTO) 88 % (42-75); PLATELET COUNT 283 10^3/uL (130-400); RED BLOOD COUNT 3.66 10^6/uL (4.35-5.85); RED CELL DISTRIBUTION WIDTH 14.3 % (10.0-14.5); WHITE BLOOD COUNT 18.8 10^3/uL (4.3-11.0)
[2017-06-27 05:37] LABS: ANION GAP 12 MMOL/L (5-14); BLOOD UREA NITROGEN 20 MG/DL (7-18); BUN/CREATININE RATIO 27; CALCIUM 10.9 MG/DL (8.5-10.1); CARBON DIOXIDE 21 MMOL/L (21-32); CHLORIDE 109 MMOL/L (98-107); CREATININE SERUM 0.75 MG/DL (0.60-1.30); GFR ESTIMATED > 60; GLUCOSE 124 MG/DL (70-105); POTASSIUM 4.7 MMOL/L (3.6-5.0); SODIUM 142 MMOL/L (135-145)
[2017-06-27] MEDS: MULTIVIT W/MINERALS TAB (THERAGRAN M) PO SCH (06:53)
[2017-06-27] MEDS: RT-ADVAIR HFA 115/21 MCG PER PUFF IH SCH ×2 (07:16→18:34)
[2017-06-27] MEDS: FAMOTIDINE 20 MG (PEPCID) TABLET PO SCH ×2 (08:24→21:14)
[2017-06-27] MEDS: methylPREDNISolone 40 MG/ML (Solu-MEDROL) VIAL IV SCH ×2 (08:25→21:16)
[2017-06-27] MEDS: BISACODYL 10 MG SUPP (DULCOLAX) PR SCH (08:25)
[2017-06-27] MEDS: SENNA W/DOCUSATE (SENOKOT S) TABLET PO SCH ×2 (08:25→21:14)
[2017-06-27] MEDS: LACTULOSE SYRUP 10GM/15ML (ENULOSE) 30ML UDC PO SCH ×2 (08:25→21:19)
[2017-06-27 08:51] VITALS: BP 129/75
--- NOTE | 2017-06-27 11:49 | Progress Note-Hospitalist ---
Progress Note HPI/CC on Admission CC: SOB HPI: This is a 76 yoWF pt of Dr. Becker who presented to the ER due to SOB. PET scan, completed recently, showed multiple CA masses in lungs. 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 Sparrow and ca discussed with pt and family Pt states she has not had a BM Home meds reconciled Protonix was administered instead of Pepcid Patient Interview: BM meds and home meds discussed Pt confirms wearing O2 at night Physical exam stable. Pt states that she breathes better when she is not moving. The fluid on her lung was discussed and she was informed that it will be removed by Dr. Sparrow. Pt states that she would like to search for another PCP Scribed by Brittany Ash under the direct supervision of Dr. Araujo. Progress Notes/Assess & Plan Date Seen 06/27/17 Time Seen by Provider: 10:45 Admission Dx/Process A/P: AECOPD w/pneumonia and pleural effusion in need of thoracentesis and cytology dx of presumed lung cancer with PET scan revealing multiple lung nodules s/p Right foot cellulitis with abscesses and callouses and 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 s/p I&D Dr Ndiaye admission s/p Right lower lobe pneumonia admitted 06/25/16 and completed Levaquin s/p UTI's (urinary tract infection) s/p recurrent pyelonephritis s/p falls with no fracture 06/24/16 prompting ER admit Smoker 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 and required steroids at [place] 06/26/16 FRITZ noncompliant with C Pap Depression Severe neuropathy with multiple falls in the past Acute constipation Diagonsis/Assessment & Plan Was doing better yesterday but then again started having more dyspnea last night. Daughter at bedside. I explained that the lung masses are presumed cancer and the effusion will reaccumulate and may need a Pleuroex catheter placed. Pt has a very poor prognosis but continues to stick with the plan for continued aggressive management. BM multiple times yesterday. She has agreed to go to skilled therapy [place] so will have SW manage that tomorrow. Will have Dr Sparrow check CXR from today and tomorrow in order to create plan for this very complicated issue. No fever, vital signs stable, pleasant, improved, chronically ill, very debilitated, sitting on side of bed, appears more declined today Regular rate and rhythm, diminished breath sounds in the bases No edema Laboratory Tests 06/27/17 04:48 A/P: AECOPD w/pneumonia and left sided pleural effusion s/p thoracentesis but cytology pending but it was a bloody malignant-appearing fluid and PET scan revealing multiple lung nodules but now having more dyspnea and it appears it is reaccumulating and likely the lung cancer is progressing rapidly s/p Right foot cellulitis with abscesses and callouses and 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 s/p I&D Dr Ndiaye admission s/p Right lower lobe pneumonia admitted 06/25/16 and completed Levaquin s/p UTI's (urinary tract infection) s/p recurrent pyelonephritis s/p falls with no fracture 06/24/16 prompting ER admit Smoker 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 and required steroids at DC 06/26/16 FRITZ noncompliant with CPAP Depression Severe neuropathy with multiple falls in the past Acute constipation now resolved Acute leukocytosis due to steroids Severe debility will require NHP so will consult SW Plan: Thoracentesis results per Dr. Sparrow but likely needs another thoracentesis or Pleurex catheter placement Pain meds prn Palliative care consult and that has been completed but still full code Cytology pending Monitor CXR for PTX since thoracentesis Poor prognosis overall and getting worse as the days pass DC Wednesday to [place]? Home O2 evaluation tomorrow FERMÍN ARAUJO DO Jun 27, 2017 11:49
[2017-06-27] MEDS: HYDROcodone/APAP 7.5 MG/325 MG (LORTAB, LORCET PLUS) TABLET PO PRN (14:35)
[2017-06-27 15:56] VITALS: BP 107/57
--- NOTE | 2017-06-27 15:58 | Diagnostic Imaging Report ---
INDICATION: Followup pleural effusion. Shortness of air. COMPARISON: 06/25/2017. FINDINGS: Progression versus redistribution of small left pleural effusion. Associated left basilar heterogeneous opacities have increased. Stable right basilar chronic interstitial-type opacities. No pneumothorax. Stable cardiomegaly. IMPRESSION: 1. Progression versus redistribution of small left pleural effusion. There are associated increased opacities in the left lung base which are likely due to atelectasis. However, pneumonia could have this appearance in the appropriate clinical setting. Dictated by: Dictated on workstation # [id number]
[2017-06-27] MEDS: traZODone 50 MG (DESYREL) TAB PO SCH (21:16)
[2017-06-27] MEDS: DOCUSATE SODIUM 100 MG (COLACE) CAP PO SCH (21:18)
[2017-06-28] VITALS: BP 123/60
[2017-06-28] MEDS: RT-ALBUTEROL/IPRATROPIUM 3 ML (DUONEB) VIAL IH SCH ×6 (02:23→22:36)
[2017-06-28 05:33] LABS: BASOPHILS % (AUTO) 0 % (0-10); EOSINOPHILS % (AUTO) 0 % (0-10); LYMPHOCYTES # (AUTO) 0.9 X 10^3 (1.0-4.0); LYMPHOCYTES % (AUTO) 5 % (12-44); MEAN CORPUSCULAR HEMOGLOBIN 29 PG (25-34); MEAN CORPUSCULAR HGB CONC 33 G/DL (32-36); MEAN CORPUSCULAR VOLUME 90 FL (80-99); MEAN PLATELET VOLUME 10.3 FL (7.4-10.4); MONOCYTES # (AUTO) 1.6 X 10^3 (0.0-1.0); MONOCYTES % (AUTO) 8 % (0-12); NEUTROPHILS # (AUTO) 16.8 X 10^3 (1.8-7.8); NEUTROPHILS % (AUTO) 87 % (42-75); PLATELET COUNT 251 10^3/uL (130-400); RED BLOOD COUNT 3.41 10^6/uL (4.35-5.85); RED CELL DISTRIBUTION WIDTH 14.2 % (10.0-14.5); WHITE BLOOD COUNT 19.3 10^3/uL (4.3-11.0)
[2017-06-28 06:09] LABS: ANION GAP 10 MMOL/L (5-14); BLOOD UREA NITROGEN 22 MG/DL (7-18); BUN/CREATININE RATIO 31; CALCIUM 10.7 MG/DL (8.5-10.1); CARBON DIOXIDE 23 MMOL/L (21-32); CHLORIDE 106 MMOL/L (98-107); CREATININE SERUM 0.71 MG/DL (0.60-1.30); GFR ESTIMATED > 60; GLUCOSE 112 MG/DL (70-105); POTASSIUM 4.7 MMOL/L (3.6-5.0); SODIUM 139 MMOL/L (135-145)
[2017-06-28] MEDS: MULTIVIT W/MINERALS TAB (THERAGRAN M) PO SCH (06:36)
[2017-06-28 08:00] VITALS: BP 117/71
[2017-06-28] MEDS: RT-ADVAIR HFA 115/21 MCG PER PUFF IH SCH ×2 (08:00→19:10)
[2017-06-28] MEDS: LEVOFLOXACIN 750 MG/150 ML IV 150 ML IV SCH (08:09)
[2017-06-28] MEDS: SENNA W/DOCUSATE (SENOKOT S) TABLET PO SCH ×2 (08:09→20:33)
[2017-06-28] MEDS: LACTULOSE SYRUP 10GM/15ML (ENULOSE) 30ML UDC PO SCH ×2 (08:10→20:32)
[2017-06-28] MEDS: FAMOTIDINE 20 MG (PEPCID) TABLET PO SCH ×2 (08:10→20:32)
[2017-06-28] MEDS: methylPREDNISolone 40 MG/ML (Solu-MEDROL) VIAL IV SCH ×4 (08:10→23:16)
--- NOTE | 2017-06-28 08:26 | Pulmonary Progress Note ---
Subjective Date Seen by Provider: Jun 28, 2017 Time Seen by Provider: 09:51 Subjective/Events-last exam PT is complaining of worsening SOB. CXR reviewed and shows small to moderate amount of pleural fluid. Exam Exam Vital Signs Date Time Temp Pulse Resp B/P (MAP) Pulse Ox O2 Delivery O2 Flow Rate FiO2 06/28/17 06:39 90 Nasal Cannula 3.00 06/28/17 02:24 91 Nasal Cannula 3.00 06/28/17 00:00 96.6 95 18 123/60 98 Nasal Cannula 3.00 06/27/17 22:26 92 Nasal Cannula 3.00 06/27/17 20:30 Nasal Cannula 2.00 06/27/17 18:39 92 Nasal Cannula 3.00 06/27/17 18:35 92 Nasal Cannula 3.00 06/27/17 15:56 97.7 98 18 107/57 92 Nasal Cannula 3.00 06/27/17 14:59 91 Nasal Cannula 3.00 06/27/17 12:16 92 3.00 06/27/17 10:28 90 Nasal Cannula 3.00 06/27/17 09:00 Nasal Cannula 3.00 06/27/17 08:51 97.6 100 18 129/75 92 Nasal Cannula 3.00 I & O 06/28/17 07:00 Intake Total 1600 ml Output Total 400 ml Balance 1200 ml General Appearance: No Apparent Distress, WD/WN, Chronically ill, Thin HEENT: PERRL/EOMI, Normal ENT Inspection, Pharynx Normal Neck: Full Range of Motion, Normal Inspection, Non Tender, Supple, Carotid Bruit Respiratory: Chest Non Tender, No Accessory Muscle Use, No Respiratory Distress , Crackles, Decreased Breath Sounds Cardiovascular: Regular Rate, Rhythm, No Edema, No Gallop, No JVD, No Murmur, Normal Peripheral Pulses Capillary Refill: Less Than 3 Seconds Extremity: Normal Capillary Refill, Normal Inspection, Normal Range of Motion, Non Tender, No Calf Tenderness, No Pedal Edema Neurologic/Psychiatric: Alert, Oriented x3, No Motor/Sensory Deficits, Normal Mood/Affect Skin: Normal Color, Warm/Dry Lymphatic: No Adenopathy Results Lab Laboratory Tests 06/27/17 04:48 06/28/17 05:17 Assessment/Plan Assessment/Plan -Probable metastatic lung cancer with positive PET -S/p thoracentesis - await cytology -Pt is tolerating pain meds well - will remove narcotics on allergy list. -Pt is having more abdominal pain currently. SHe had BM last night Pleural effusion probably metastatic -CXR reviewed and shows small to moderate left pleural effusion. Pleurx Catheter was discussed with patient. I am afraid placing catheter at this time will cause more harm/pain then benefit. Will repeat CXR tomorrow and reevaluate. 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 She is going to need pain meds moving forward. PNA possible postobstructive PNA -Continue ABx Leukocytosis COPDAE -solumedrol -SVNS PT's prognosis is very poor with her undiagnosed metastatic cancer. I discussed end of life care with her and Code status with daughter present at bedside. PT is now a DNR/DNI. 232 Clinical Quality Measures DVT/VTE Risk/Contraindication: Risk Factor Score Per Nursin RFS Level Per Nursing on Admit: 2=Moderate ELBA FORD DO Jun 28, 2017 08:26
--- NOTE | 2017-06-28 09:31 | Diagnostic Imaging Report ---
EXAMINATION: PA and lateral views of the chest. INDICATION: Followup pleural effusion. COMPARISON: 06/27/2017. FINDINGS: There is a [id number] left pleural effusion with left basilar infiltrates or atelectasis similar to 06/27/2017. There is a small right effusion and mild right basilar atelectasis. The heart size is mildly enlarged. Most of the left border however is obscured. The mediastinum and norma appear unremarkable. No pneumothorax. There are surgical clips in the upper abdomen seen. IMPRESSION: Bilateral effusions and basilar infiltrates or atelectasis mostly on the left without significant change. Dictated by: Dictated on workstation # [id number]
--- NOTE | 2017-06-28 09:40 | Progress Note-Hospitalist ---
Progress Note HPI/CC on Admission CC: SOB HPI: This is a 76 [address] pt of [address] Becker who presented to the ER due to SOB. PET scan, completed recently, showed multiple CA masses in lungs. Dr. 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 Sparrow and ca discussed with pt and family Pt states she has not had a BM Home meds reconciled Protonix was administered instead of Pepcid Patient Interview: BM meds and home meds discussed Pt confirms wearing O2 at night Physical exam stable. Pt states that she breathes better when she is not moving. The fluid on her lung was discussed and she was informed that it will be removed by Dr. Sparrow. Pt states that she would like to search for another PCP Scribed by Brittany Ash under the direct supervision of Dr. Araujo. Progress Notes/Assess & Plan Date Seen 06/28/17 Time Seen by Provider: 09:00 Admission Dx/Process A/P: AECOPD w/pneumonia and pleural effusion in need of thoracentesis and cytology dx of presumed lung cancer with PET scan revealing multiple lung nodules s/p Right foot cellulitis with abscesses and callouses and 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 s/p I&D Dr Ndiaye admission s/p Right lower lobe pneumonia admitted 06/25/16 and completed Levaquin s/p UTI's (urinary tract infection) s/p recurrent pyelonephritis s/p falls with no fracture 06/24/16 prompting ER admit Smoker 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 Had a long conversation with patient and daughter with Dr Sparrow in the room. CXR reviewed and it does not appear that a thoracentesis or catheter placement would help since the effusion had not really increased in size. Cytology still pending but it appears to be a very aggressive cancer. Dr Sparrow and Riley on board and obtained the DNR order because in my opinion she is in the phase of process and appears frightened and very declined. Can't even lean up in bed for me to examine lung sounds. No fever, vital signs stable,declined, chronically ill, very debilitated, lying in bed, moderately tachypneic at rest Regular rate and rhythm, diminished breath sounds in the bases No edema A/P: AECOPD w/pneumonia and left sided pleural effusion s/p thoracentesis but cytology pending but it was a bloody malignant-appearing fluid and PET scan revealing multiple lung nodules but now having more dyspnea and it appears it is reaccumulating but not enough for catheter placement and likely the lung cancer is progressing rapidly so obtained DNR and in my opinion she is in the process s/p Right foot cellulitis with abscesses and callouses and 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 s/p I&D Dr Ndiaye admission s/p Right lower lobe pneumonia admitted 06/25/16 and completed Levaquin s/p UTI's (urinary tract infection) s/p recurrent pyelonephritis s/p falls with no fracture 06/24/16 prompting ER admit Smoker 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 Skilled but likely hospice FERMÍN ARAUJO DO Jun 28, 2017 09:40
[2017-06-28] MEDS: BISACODYL 10 MG SUPP (DULCOLAX) PR SCH (10:48)
[2017-06-28] MEDS: risperiDONE 0.25 MG (RisperDAL) TAB PO SCH ×2 (10:53→20:32)
[2017-06-28] MEDS: morphine INJ 4 MG/ML 1 ML (VIAL/SYRINGE) IVP PRN ×2 (10:54→16:55)
[2017-06-28 16:00] VITALS: BP 104/65
[2017-06-28] MEDS: HYDROcodone/APAP 7.5 MG/325 MG (LORTAB, LORCET PLUS) TABLET PO PRN (20:32)
[2017-06-28] MEDS: traZODone 50 MG (DESYREL) TAB PO SCH (20:33)
[2017-06-28] MEDS: DOCUSATE SODIUM 100 MG (COLACE) CAP PO SCH (20:33)
[2017-06-29] VITALS: BP 108/49
[2017-06-29] MEDS: RT-ALBUTEROL/IPRATROPIUM 3 ML (DUONEB) VIAL IH SCH ×6 (02:59→22:20)
[2017-06-29 05:09] LABS: BASOPHILS % (AUTO) 0 % (0-10); EOSINOPHILS % (AUTO) 0 % (0-10); LYMPHOCYTES # (AUTO) 0.9 X 10^3 (1.0-4.0); LYMPHOCYTES % (AUTO) 5 % (12-44); MEAN CORPUSCULAR HEMOGLOBIN 29 PG (25-34); MEAN CORPUSCULAR HGB CONC 32 G/DL (32-36); MEAN CORPUSCULAR VOLUME 90 FL (80-99); MEAN PLATELET VOLUME 10.4 FL (7.4-10.4); MONOCYTES # (AUTO) 1.5 X 10^3 (0.0-1.0); MONOCYTES % (AUTO) 8 % (0-12); NEUTROPHILS # (AUTO) 16.1 X 10^3 (1.8-7.8); NEUTROPHILS % (AUTO) 87 % (42-75); PLATELET COUNT 194 10^3/uL (130-400); RED BLOOD COUNT 3.28 10^6/uL (4.35-5.85); RED CELL DISTRIBUTION WIDTH 14.2 % (10.0-14.5); WHITE BLOOD COUNT 18.5 10^3/uL (4.3-11.0)
[2017-06-29 05:27] LABS: CREATININE SERUM 0.97 MG/DL (0.60-1.30); POTASSIUM 4.7 MMOL/L (3.6-5.0)
[2017-06-29] MEDS: methylPREDNISolone 40 MG/ML (Solu-MEDROL) VIAL IV SCH ×4 (06:01→23:17)
[2017-06-29] MEDS: MULTIVIT W/MINERALS TAB (THERAGRAN M) PO SCH (06:01)
[2017-06-29 08:00] VITALS: BP 116/61
--- NOTE | 2017-06-29 08:34 | Pulmonary Progress Note ---
Subjective Time Seen by Provider: 06:57 Subjective/Events-last exam Pt feels more more SOB. CXR reviewed and shows worsening effusion. Exam Exam Vital Signs Date Time Temp Pulse Resp B/P (MAP) Pulse Ox O2 Delivery O2 Flow Rate FiO2 06/29/17 06:40 92 Nasal Cannula 3.00 06/29/17 02:59 94 Nasal Cannula 3.00 06/29/17 00:00 97.8 84 18 108/49 93 Nasal Cannula 3.50 06/28/17 22:36 92 Nasal Cannula 3.00 06/28/17 22:07 Nasal Cannula 3.00 06/28/17 18:55 93 Nasal Cannula 3.00 06/28/17 18:55 93 Nasal Cannula 3.00 06/28/17 16:00 98.7 102 18 104/65 90 Nasal Cannula 3.00 06/28/17 15:08 90 Nasal Cannula 3.00 06/28/17 11:11 91 Nasal Cannula 3.00 06/28/17 09:00 Nasal Cannula 3.00 I & O 06/29/17 07:00 Intake Total 1290 ml Output Total 400 ml Balance 890 ml General Appearance: No Apparent Distress, WD/WN, Chronically ill, Thin HEENT: PERRL/EOMI, Normal ENT Inspection, Pharynx Normal Neck: Full Range of Motion, Normal Inspection, Non Tender, Supple, Carotid Bruit Respiratory: Chest Non Tender, No Accessory Muscle Use, No Respiratory Distress , Crackles, Decreased Breath Sounds Cardiovascular: Regular Rate, Rhythm, No Edema, No Gallop, No JVD, No Murmur, Normal Peripheral Pulses Capillary Refill: Less Than 3 Seconds Extremity: Normal Capillary Refill, Normal Inspection, Normal Range of Motion, Non Tender, No Calf Tenderness, No Pedal Edema Neurologic/Psychiatric: Alert, Oriented x3, No Motor/Sensory Deficits, Normal Mood/Affect Skin: Normal Color, Warm/Dry Lymphatic: No Adenopathy Results Lab Laboratory Tests 06/28/17 05:17 06/29/17 04:02 Assessment/Plan Assessment/Plan -Probable metastatic lung cancer with positive PET -S/p thoracentesis - cytology is negative -Pt is tolerating pain meds well - -I discussed with Dr. South and Dr. Queen regarding need for Pleurx catheter and another bx. After in depth discussion and review of all imaging Dr. South is planning on planing catheter and bx of superficial lymph node. Pt and daughter understands plan of and agree with plan. Pleural effusion probably metastatic -Repeat CXR today metastatic lung cancer to bone. She is going to need pain meds moving forward. PNA possible postobstructive PNA -Continue ABx Leukocytosis COPDAE -solumedrol -SVNS Total time spent with patient and medical team discussing plan of care is 60 min Clinical Quality Measures DVT/VTE Risk/Contraindication: Risk Factor Score Per Nursin RFS Level Per Nursing on Admit: 2=Moderate ELBA FORD DO Jun 29, 2017 08:34
[2017-06-29] MEDS: FAMOTIDINE 20 MG (PEPCID) TABLET PO SCH ×2 (08:42→20:59)
[2017-06-29] MEDS: LACTULOSE SYRUP 10GM/15ML (ENULOSE) 30ML UDC PO SCH ×2 (08:42→21:01)
[2017-06-29] MEDS: BISACODYL 10 MG SUPP (DULCOLAX) PR SCH (08:42)
[2017-06-29] MEDS: SENNA W/DOCUSATE (SENOKOT S) TABLET PO SCH ×2 (08:42→20:58)
[2017-06-29] MEDS: risperiDONE 0.25 MG (RisperDAL) TAB PO SCH ×2 (08:42→20:59)
[2017-06-29] MEDS ORDERED: LACT20SO2 PO (09:12)
[2017-06-29] MEDS ORDERED: HYDR-3816 PO (09:12)
[2017-06-29] MEDS ORDERED: PRED10TA22 PO (09:12)
--- NOTE | 2017-06-29 09:13 | Diagnostic Imaging Report ---
INDICATION: Pleural effusion. Frontal chest obtained at 8:39 a.m. and compared to 06/28/2017. Cardiomegaly is again noted. There is central vascular congestion with some interstitial edema. There is increasing left midlung and basilar opacity which may represent pleural fluid and/or infiltrate. Consider a decubitus view if clinically warranted. The appearance of the right lung is unchanged. IMPRESSION: Cardiomegaly with central vascular congestion with some interstitial edema. Worsening opacity in left midlung and base which may represent pleural fluid and/or consolidation. Consider decubitus view if indicated. ? Dictated by: Dictated on workstation # [id number]
--- NOTE | 2017-06-29 09:13 | Discharge Inst-Skilled Nursing ---
Discharge Inst-Skilled NF Chief Complaint CC: SOB HPI: This is a 76 yoWF pt of [address] Becker who presented to the ER due to SOB. PET scan, completed recently, showed multiple CA masses in lungs. Dr. 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 Sparrow and ca discussed with pt and family Pt states she has not had a BM Home meds reconciled Protonix was administered instead of Pepcid Patient Interview: BM meds and home meds discussed Pt confirms wearing O2 at night Physical exam stable. Pt states that she breathes better when she is not moving. The fluid on her lung was discussed and she was informed that it will be removed by Dr. Sparrow. Pt states that she would like to search for another PCP Scribed by Brittany Ash under the direct supervision of Dr. Araujo. Patient Instructions Patient Problems: Severe COPD Lung masses with presumed malignant pleural effusions Smoker Goal: Strengthen Consult/Follow Up/Orders Skilled NF Admit to: Certification (SNF) I certify that SNF services are required to be given on an inpatient basis because of the above named patient's need for shelter care on a continuing basis for the conditions(s) for which he/she was receiving inpatient hospital services prior to his/her transfer to the SNF. Halfway Facility Order: Nursing Services, Reclamation Kettle Tender-Evaluate & Treat, Physical Therapy-Evaluate & Treat Discharge Diet: No Restrictions New & Resume Previous Orders New Medications: Prednisone (Prednisone) 10 Mg Tab.ds.pk 10 MG PO DAILY, #21 PKG Take 6 tabs(60mg)daily,decrease by 1 tab(10MG)daily. Hydrocodone/Acetaminophen (Hydrocodon-Acetaminoph 7.5-325) 1 Each Tablet 1-2 EA PO Q6HR PRN for PAIN-MODERATE, #30 TAB Lactulose (Lactulose) 20 Gm/30 Ml Solution 10 GM PO BID for 30 Days, EA Continued Medications: Acetaminophen (Acetaminophen Extra Strength) 500 Mg Tablet 1000 MG PO Q8H PRN for PAIN, TAB TAKES 2 (500MG) TABLETS Aspirin (Aspirin) 81 Mg Tab.chew 81 MG PO DAILY, TAB Budesonide/Formoterol Fumarate (Symbicort 160-4.5 Mcg Inhaler) 10.2 Gm Hfa.aer.ad 2 PUFF INH BID, INHALER Docusate Sodium (Colace) 100 Mg Cap 100-300 MG PO HS TAKES 1 to 3 (100 MG) CAPSULES Famotidine (Famotidine) 20 Mg Tablet 20 MG PO BID, TAB Ipratropium/Albuterol Sulfate (Iprat-Albut 0.5-3(2.5) mg/3 ml) 3 Ml Ampul.neb 3 ML IH Q4H PRN for SHORTNESS OF BREATH for 8 Days Multivitamin with Minerals (Multivitamins with Minerals) 1 Each Tablet 1 TAB PO DAILY, TAB Trazodone HCl (Trazodone HCl) 50 Mg Tablet 25 MG PO HS TAKES 1/2 OF A (50 MG) TABLET Wheat Dextrin (Benefiber) 236 Gm Powder 2 TSP PO TIDWM, EA Joy Araujo Jun 29, 2017 09:13 JOY ARAUJO DO Jun 29, 2017 09:13
--- NOTE | 2017-06-29 09:16 | Progress Note-Hospitalist ---
Progress Note HPI/CC on Admission CC: SOB HPI: This is a 76 yoWF pt of Dr[address] Becker who presented to the ER due to SOB. PET scan, completed recently, showed multiple CA masses in lungs. Dr. 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 Sparrow and ca discussed with pt and family Pt states she has not had a BM Home meds reconciled Protonix was administered instead of Pepcid Patient Interview: BM meds and home meds discussed Pt confirms wearing O2 at night Physical exam stable. Pt states that she breathes better when she is not moving. The fluid on her lung was discussed and she was informed that it will be removed by Dr. Sparrow. Pt states that she would like to search for another PCP Scribed by Brittany Ash under the direct supervision of Dr. Araujo. 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 s/p I&D Dr Ndiaye admission s/p Right lower lobe pneumonia admitted 06/25/16 and completed Levaquin s/p UTI's (urinary tract infection) s/p recurrent pyelonephritis s/p falls with no fracture 06/24/16 prompting ER admit Smoker 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 and required steroids at DC 06/26/16 FRITZ noncompliant with C Pap Depression Severe neuropathy with multiple falls in the past Acute constipation Diagonsis/Assessment & Plan Pt stable today ready for DC to NH if that can be arranged Checked meds Prepared for DC and completed skilled orders for NH May be several more days to get results from cytology back Needs Oncology f/u once pathology is completed as outpt Poor prognosis and DNR maintained Eating a bit Pain is much better and had a BM No fever, vital signs stable,declined, chronically ill, very debilitated, lying in bed, no tachypnea noted Regular rate and rhythm, diminished breath sounds in the bases No edema A/P: AECOPD w/pneumonia and left sided pleural effusion s/p thoracentesis but cytology pending but it was a bloody malignant-appearing fluid and PET scan revealing multiple lung nodules but now having more dyspnea at baseline and it appears it is reaccumulating but not enough for catheter placement and likely the lung cancer is progressing rapidly so obtained DNR and in my opinion she is in the process but today has become more stable so needs NHP and pathology results as outpt s/p Right foot cellulitis with abscesses and callouses and 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 s/p I&D Dr Ndiaye admission s/p Right lower lobe pneumonia admitted 06/25/16 and completed Levaquin s/p UTI's (urinary tract infection) s/p recurrent pyelonephritis s/p falls with no fracture 06/24/16 prompting ER admit Smoker 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 Skilled but likely hospice eventually FERMÍN ARAUJO DO Jun 29, 2017 09:16
[2017-06-29] MEDS: RT-ADVAIR HFA 115/21 MCG PER PUFF IH SCH (10:37)
[2017-06-29 16:00] VITALS: BP 119/69
[2017-06-29] MEDS: DOCUSATE SODIUM 100 MG (COLACE) CAP PO SCH (20:58)
[2017-06-29] MEDS: traZODone 50 MG (DESYREL) TAB PO SCH (20:59)
[2017-06-29] MEDS: HYDROcodone/APAP 7.5 MG/325 MG (LORTAB, LORCET PLUS) TABLET PO PRN (21:04)
[2017-06-30] VITALS: BP 99/55
[2017-06-30] MEDS: RT-ALBUTEROL/IPRATROPIUM 3 ML (DUONEB) VIAL IH SCH ×4 (02:10→14:58)
[2017-06-30 05:49] LABS: BASOPHILS % (AUTO) 0 % (0-10); EOSINOPHILS % (AUTO) 0 % (0-10); LYMPHOCYTES # (AUTO) 0.8 X 10^3 (1.0-4.0); LYMPHOCYTES % (AUTO) 5 % (12-44); MEAN CORPUSCULAR HEMOGLOBIN 30 PG (25-34); MEAN CORPUSCULAR HGB CONC 33 G/DL (32-36); MEAN CORPUSCULAR VOLUME 90 FL (80-99); MEAN PLATELET VOLUME 11.2 FL (7.4-10.4); MONOCYTES # (AUTO) 1.3 X 10^3 (0.0-1.0); MONOCYTES % (AUTO) 7 % (0-12); NEUTROPHILS # (AUTO) 15.5 X 10^3 (1.8-7.8); NEUTROPHILS % (AUTO) 88 % (42-75); PLATELET COUNT 186 10^3/uL (130-400); RED BLOOD COUNT 3.24 10^6/uL (4.35-5.85); RED CELL DISTRIBUTION WIDTH 14.2 % (10.0-14.5); WHITE BLOOD COUNT 17.6 10^3/uL (4.3-11.0)
[2017-06-30 06:01] LABS: BAND NEUTROPHILS 3 %; BASOPHILS % (MANUAL) 0 %; EOSINOPHILS % (MANUAL) 0 %; LYMPHOCYTES % (MANUAL) 4 %; NEUTROPHILS % (MANUAL) 85 %
[2017-06-30 06:03] LABS: ANION GAP 12 MMOL/L (5-14); BLOOD UREA NITROGEN 34 MG/DL (7-18); BUN/CREATININE RATIO 39; CALCIUM 10.9 MG/DL (8.5-10.1); CARBON DIOXIDE 23 MMOL/L (21-32); CHLORIDE 106 MMOL/L (98-107); CREATININE SERUM 0.88 MG/DL (0.60-1.30); GFR ESTIMATED > 60; GLUCOSE 132 MG/DL (70-105); POTASSIUM 4.8 MMOL/L (3.6-5.0); SODIUM 141 MMOL/L (135-145)
[2017-06-30] MEDS: MULTIVIT W/MINERALS TAB (THERAGRAN M) PO SCH (06:14)
[2017-06-30] MEDS: HYDROcodone/APAP 7.5 MG/325 MG (LORTAB, LORCET PLUS) TABLET PO PRN (06:14)
[2017-06-30] MEDS: methylPREDNISolone 40 MG/ML (Solu-MEDROL) VIAL IV SCH (06:14)
--- NOTE | 2017-06-30 07:07 | Pulmonary Progress Note ---
Subjective Time Seen by Provider: 14:14 Subjective/Events-last exam pt feels SOB Exam Exam Vital Signs Date Time Temp Pulse Resp B/P (MAP) Pulse Ox O2 Delivery O2 Flow Rate FiO2 06/30/17 02:10 93 Nasal Cannula 5.00 06/30/17 00:00 97.6 90 20 99/55 96 Nasal Cannula 3.50 06/29/17 22:20 92 Nasal Cannula 5.00 06/29/17 21:00 Nasal Cannula 3.00 06/29/17 18:43 91 Nasal Cannula 5.00 06/29/17 18:36 89 Nasal Cannula 4.00 06/29/17 16:00 97.8 93 22 119/69 91 Nasal Cannula 3.50 06/29/17 14:15 88 Room Air 06/29/17 10:41 90 Nasal Cannula 3.00 06/29/17 10:32 90 Nasal Cannula 3.00 06/29/17 09:00 Nasal Cannula 3.00 06/29/17 08:00 98.7 88 20 116/61 91 Nasal Cannula 3.50 I & O 06/30/17 07:00 Intake Total 900 ml Balance 900 ml General Appearance: No Apparent Distress, WD/WN, Chronically ill, Thin HEENT: PERRL/EOMI, Normal ENT Inspection, Pharynx Normal Neck: Full Range of Motion, Normal Inspection, Non Tender, Supple, Carotid Bruit Respiratory: Chest Non Tender, No Accessory Muscle Use, No Respiratory Distress , Crackles, Decreased Breath Sounds Cardiovascular: Regular Rate, Rhythm, No Edema, No Gallop, No JVD, No Murmur, Normal Peripheral Pulses Capillary Refill: Less Than 3 Seconds Extremity: Normal Capillary Refill, Normal Inspection, Normal Range of Motion, Non Tender, No Calf Tenderness, No Pedal Edema Neurologic/Psychiatric: Alert, Oriented x3, No Motor/Sensory Deficits, Normal Mood/Affect Skin: Normal Color, Warm/Dry Lymphatic: No Adenopathy Results Lab Laboratory Tests 06/29/17 04:02 06/30/17 04:39 Assessment/Plan Assessment/Plan -Probable metastatic lung cancer with positive PET -S/p thoracentesis - cytology is negative -Pt is tolerating pain meds well - -- Dr. South is planning on planing catheter and bx of superficial lymph node today. 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 She is going to need pain meds moving forward. PNA possible postobstructive PNA -Continue ABx Leukocytosis COPDAE -solumedrol decrease to Q12 -SVNS Probable discharge tomorrow 232 Clinical Quality Measures DVT/VTE Risk/Contraindication: Risk Factor Score Per Nursin RFS Level Per Nursing on Admit: 2=Moderate ELBA FORD DO Jun 30, 2017 07:07
[2017-06-30] MEDS: RT-ADVAIR HFA 115/21 MCG PER PUFF IH SCH (07:21)
[2017-06-30 08:00] VITALS: BP 97/52
[2017-06-30] MEDS: LEVOFLOXACIN 750 MG/150 ML IV 150 ML IV SCH (08:44)
[2017-06-30] MEDS: SENNA W/DOCUSATE (SENOKOT S) TABLET PO SCH (08:44)
[2017-06-30] MEDS: LACTULOSE SYRUP 10GM/15ML (ENULOSE) 30ML UDC PO SCH (08:44)
[2017-06-30] MEDS: BISACODYL 10 MG SUPP (DULCOLAX) PR SCH (08:44)
[2017-06-30] MEDS ORDERED: LIDOCAINE 1% INJ 20 ML (XYLOCAINE) VIAL ONE (09:56)
--- NOTE | 2017-06-30 10:26 | Discharge Summary-Hospitalist ---
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 s/p I&D Dr Ndiaye admission s/p Right lower lobe pneumonia admitted 06/25/16 and completed Levaquin s/p UTI's (urinary tract infection) s/p recurrent pyelonephritis s/p falls with no fracture 06/24/16 prompting ER admit Smoker 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 and required steroids at DC 06/26/16 FRITZ noncompliant with C Pap Depression Severe neuropathy with multiple falls in the past Acute constipation Discharge Diagnosis Pt stable today ready for DC to NH if that can be arranged Checked meds Prepared for DC and completed skilled orders for NH May be several more days to get results from cytology back Needs Oncology f/u once pathology is completed as outpt Poor prognosis and DNR maintained Eating a bit Pain is much better and had a BM No fever, vital signs stable,declined, chronically ill, very debilitated, lying in bed, no tachypnea noted Regular rate and rhythm, diminished breath sounds in the bases No edema A/P: AECOPD w/pneumonia and left sided pleural effusion s/p thoracentesis but cytology pending but it was a bloody malignant-appearing fluid and PET scan revealing multiple lung nodules but now having more dyspnea at baseline and it appears it is reaccumulating but not enough for catheter placement and likely the lung cancer is progressing rapidly so obtained DNR and in my opinion she is in the process but today has become more stable so needs NHP and pathology results as outpt after obtaining pleural catheter and needle biopsy for tissue dx s/p Right foot cellulitis with abscesses and callouses and 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 s/p I&D Dr Ndiaye admission s/p Right lower lobe pneumonia admitted 06/25/16 and completed Levaquin s/p UTI's (urinary tract infection) s/p recurrent pyelonephritis s/p falls with no fracture 06/24/16 prompting ER admit Smoker 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 and required steroids at DC 06/26/16 FRITZ noncompliant with CPAP Depression Severe neuropathy with multiple falls in the past Acute constipation now resolved Acute leukocytosis due to steroids Abdominal pain now resolved with pain meds Severe debility will require NHP at [place] and have consulted SW Notes from 06/30/17 travel coordinator: Pt is not in great shape but is still with it Pt is having BMs, but they are very loose Patient Interview: Pt's daughter confirms that the procedure will happen today Pt's daughter states pt's pain is at a 2 or 3 BMs discussed and pain meds affect as well Pt states that she appreciates my care O2 was discussed and she will be on O2 at the [place] Physical exam stable. Catheter discussed, this will help reduce SOB Plan: Pain meds prn Palliative care consult and DNR obtained Cytology pending Poor prognosis overall and getting worse as the days pass Catheter placement today Home O2 DC to [place], Skilled but likely hospice eventually Scribed by Brittany Ash under the direct supervision of Dr. Kenney. Discharge Summary Discharge Physical Examination Allergies: Coded Allergies: cephalexin (Verified Allergy, Unknown, 04/02/09) penicillin G (Verified Allergy, Unknown, 01/28/09) tramadol (Unverified Adverse Reaction, Unknown, 01/04/15) ACTS GOOFY Vitals & I&Os Vital Signs Date Time Temp Pulse Resp B/P (MAP) Pulse Ox O2 Delivery O2 Flow Rate FiO2 06/30/17 09:00 96 Nasal Cannula 3.50 95 06/30/17 08:00 97.3 86 20 97/52 Hospital Course Hospital course: Patient had a lengthy hospital course that began in the ICU for respiratory failure due to presumed postobstructive pneumonia with multiple lung masses on chest x-ray and PET scan that was done as an outpatient by primary care provider. She is placed on noninvasive ventilator support along with IV steroids and IV antibiotics and pulmonology was consulted. 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 Overall poor prognosis but pain was controlled and arrangements were made for jail placement. Labs (last 24 hrs) Laboratory Tests 06/30/17 04:39: White Blood Count 17.6H, Red Blood Count 3.24L, Hemoglobin 9.6L, Hematocrit 29L , Mean Corpuscular Volume 90, Mean Corpuscular Hemoglobin 30, Mean Corpuscular Hemoglobin Concent 33, Red Cell Distribution Width 14.2, Platelet Count 186, Mean Platelet Volume 11.2H, Neutrophils (%) (Auto) 88H, Lymphocytes (%) (Auto) 5L, Monocytes (%) (Auto) 7, Eosinophils (%) (Auto) 0, Basophils (%) (Auto) 0, Neutrophils # (Auto) 15.5H, Lymphocytes # (Auto) 0.8L, Monocytes # (Auto) 1.3H, Eosinophils # (Auto) 0.0, Basophils # (Auto) 0.0, Neutrophils % (Manual) 85, Lymphocytes % (Manual) 4, Monocytes % (Manual) 8, Eosinophils % (Manual) 0, Basophils % (Manual) 0, Band Neutrophils 3, Toxic Granulation 1+, Blood Morphology Comment NORMAL, Sodium Level 141, Potassium Level 4.8, Chloride Level 106, Carbon Dioxide Level 23, Anion Gap 12, Blood Urea Nitrogen 34H, Creatinine 0.88, Estimat Glomerular Filtration Rate > 60, BUN/Creatinine Ratio 39, Glucose Level 132H, Calcium Level 10.9H Microbiology 06/23/17 Blood Culture - Final, Complete No growth 06/25/17 Gram Stain - Final, Complete 06/25/17 Body Fluid Culture - Final, Complete No growth 06/25/17 Mycobacterial Culture - Preliminary, Resulted Pending Labs Laboratory Tests 06/30/17 04:39: White Blood Count 17.6, Red Blood Count 3.24, Hemoglobin 9.6, Hematocrit 29, Mean Corpuscular Volume 90, Mean Corpuscular Hemoglobin 30, Mean Corpuscular Hemoglobin Concent 33, Red Cell Distribution Width 14.2, Platelet Count 186, Mean Platelet Volume 11.2, Neutrophils (%) (Auto) 88, Lymphocytes (%) (Auto) 5, Monocytes (%) (Auto) 7, Eosinophils (%) (Auto) 0, Basophils (%) (Auto) 0, Neutrophils # (Auto) 15.5, Lymphocytes # (Auto) 0.8, Monocytes # (Auto) 1.3, Eosinophils # (Auto) 0.0, Basophils # (Auto) 0.0, Neutrophils % (Manual) 85, Lymphocytes % (Manual) 4, Monocytes % (Manual) 8, Eosinophils % (Manual) 0, Basophils % (Manual) 0, Band Neutrophils 3, Toxic Granulation 1+, Blood Morphology Comment NORMAL, Sodium Level 141, Potassium Level 4.8, Chloride Level 106, Carbon Dioxide Level 23, Anion Gap 12, Blood Urea Nitrogen 34, Creatinine 0.88, Estimat Glomerular Filtration Rate > 60, BUN/Creatinine Ratio 39, Glucose Level 132, Calcium Level 10.9 Discharge Home Medications: Active Scripts Active Prednisone 10 Mg Tab.ds.pk 10 Mg PO DAILY Take 6 tabs(60mg)daily,decrease by 1 tab(10MG)daily. Lactulose 20 Gm/30 Ml Solution 10 Gm PO BID 30 Days Hydrocodon-Acetaminoph 7.5-325 (Hydrocodone/Acetaminophen) 1 Each Tablet 1-2 Ea PO Q6HR PRN Reported Iprat-Albut 0.5-3(2.5) mg/3 ml (Ipratropium/Albuterol Sulfate) 3 Ml Ampul.neb 3 Ml IH Q4H PRN 8 Days Trazodone HCl 50 Mg Tablet 25 Mg PO HS TAKES 1/2 OF A (50 MG) TABLET Aspirin 81 Mg Tab.chew 81 Mg PO DAILY Symbicort 160-4.5 Mcg Inhaler (Budesonide/Formoterol Fumarate) 10.2 Gm Hfa.aer.ad 2 Puff INH BID Famotidine 20 Mg Tablet 20 Mg PO BID Multivitamins with Minerals (Multivitamin with Minerals) 1 Each Tablet 1 Tab PO DAILY Benefiber (Wheat Dextrin) 236 Gm Powder 2 Tsp PO TIDWM Acetaminophen Extra Strength (Acetaminophen) 500 Mg Tablet 1,000 Mg PO Q8H PRN TAKES 2 (500MG) TABLETS Colace (Docusate Sodium) 100 Mg Cap 100-300 Mg PO HS TAKES 1 to 3 (100 MG) CAPSULES Instructions to patient/family Please see electonic discharge instructions given to patient. Clinical Quality Measures DVT/VTE Risk/Contraindication: Risk Factor Score Per Nursin RFS Level Per Nursing on Admit: 2=Moderate FERMÍN KENNEY DO Jun 30, 2017 10:26
[2017-06-30] MEDS ORDERED: BUPIVACAINE 0.5% 30 ML (SENSORCAINE) VIAL ONE (11:05)
[2017-06-30] MEDS: FAMOTIDINE 20 MG (PEPCID) TABLET PO SCH (11:14)
[2017-06-30] MEDS: risperiDONE 0.25 MG (RisperDAL) TAB PO SCH (11:14)
[2017-06-30] MEDS ORDERED: LIDOCAINE 1% INJ 20 ML (XYLOCAINE) VIAL INJ ONE (11:15)
[2017-06-30] MEDS ORDERED: BUPIVACAINE 0.5% 30 ML (SENSORCAINE) VIAL INJ ONE (11:30)
[2017-06-30 12:00] VITALS: BP 126/64
--- NOTE | 2017-06-30 12:41 | Pre-Procedure Progress Note ---
Pre-Procedure Progress Note H&P Reviewed The H&P was reviewed, patient examined and no changes noted. Date H&P Reviewed: Jun 30, 2017 Time H&P Reviewed: 10:00 Pre-Procedure Diagnosis: right shoulder nodules and Left pleural effusion biopsy of the nodules and tunneled pleurix catheter on the left to be placed. ILIANA MEZA MD Jun 30, 2017 12:40
--- NOTE | 2017-06-30 12:47 | Diagnostic Imaging Report ---
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 CONSENT: Informed written consent was obtained from the [<patient>]. The risks, benefits, potential complications and alternatives were reviewed and all questions answered to patient's satisfaction. CONTRAST: None FLUORO TIME: 12 seconds. ESTIMATED BLOOD LOSS: 10 mL PROCEDURE: Preliminary 2D real time ultrasound evaluation of the left thorax demonstrate large effusion. Appropriate area is selected and is appropriate for catheter and tunnel placement. Following sterile preparation and local anesthetic, and utilizing ultrasound for guidance, the pleural cavity percutaneously entered with a 18g needle. Using standard exchange techniques, a guidewire was advanced well into the pleural cavity. The skin entry was then enlarged with a scalpel and blunt dissection. Following appropriate measurements, a tract for the tunnel was selected and local anesthetic administered. The skin was incised and an intercostal subcutaneous tunnel was created with blunt dissection from the skin entry to the peritoneal access site. A 15.5 [place] peritoneal Pleurx catheter is passed through the tunnel. The introducer sheath was then advanced over the guide wire into the pleural cavity. The catheter was advanced through the peel-away sheath, positioned under fluoroscopy into the pleural cavity. Drainage of approximately 0.5 L of blood tinged fluid is performed during the procedure. Free flow was confirmed through the catheter is confirmed. Pleural access site was closed with subcutaneous 3-0 Vicryl suture and Dermabond. Sterile dressing was applied. No immediate complications. IMPRESSION: Successful fluoroscopic guided placement of tunneled left pleural drainage catheter placement. Dictated by: Dictated on workstation # [id number]
--- NOTE | 2017-06-30 12:51 | Diagnostic Imaging Report ---
EXAMINATION: US-guided core biopsy-right shoulder posterior soft tissue nodules. INDICATION: Hypermetabolic right shoulder soft tissue nodules posteriorly within the subcutaneous fat suggestive of metastasis. Current history and physical and other medical records are reviewed prior to the procedure. CONSENT: Informed consent was obtained from the patient. The risks, benefits, potential complications and alternatives were reviewed and all questions answered to the patient's satisfaction. The patient's vital signs, cardiac rhythm, and pulse oximetry with observed throughout the procedure by qualified nursing personnel. Sedation/medications: none. FINDINGS: Posterior right shoulder 3 distinct nodules are identified. PROCEDURE: After maximal sterile barrier technique preparation and draping, 1% lidocaine was utilized for local anesthesia. With the patient in the left side down position, and via posterior approach, a 17-gauge guide needle is introduced into the posterior right shoulder soft tissue nodules under live ultrasound guidance. After confirming adequate positioning with saved ultrasound images, multiple 18 gauge core biopsy specimens were obtained. The patient tolerated the procedure well with no immediate complications. IMPRESSION: Successful US-guided core biopsy of posterior right shoulder soft tissue nodules. Dictated by: Dictated on workstation # [id number]
--- NOTE | 2017-06-30 12:54 | Diagnostic Imaging Report ---
EXAMINATION: Ultrasound guidance for puncture into the left pleura cavity. INDICATION: Malignant left pleural effusion for subsequent placement of tunneled catheter drain. PROCEDURE: Initial ultrasound examination demonstrates moderate left effusion with left lower lobe atelectasis. Pocket in the left pleura is deemed as suitable for access from an intercostal approach based on pocket depth and surrounding structures. A safe access point is selected. 18-gauge sheathed needle is utilized. Live ultrasound guidance is utilized to insure appropriate needle trajectory and a safe puncture was performed. Ultrasound image of the needle position is saved. Catheter insertion procedure under fluoroscopic guidance is dictated separately. IMPRESSION: Ultrasound-guided puncture into the left pleura utilized. Dictated by: Dictated on workstation # [id number]
[2017-06-30 16:20] VITALS: BP 126/64
[2017-06-30] MEDS ORDERED: methylPREDNISolone 40 MG/ML (Solu-MEDROL) VIAL IV SCH (18:00)
== END 2017-06-30 16:20 | DRG 180 ==
LOC: EDUNIT# 10:25 → ER 10:27 → ICU 12:32 → 4TH 06-25 14:57
PROVIDERS: ADMIT Internal Medicine; ATTEND Internal Medicine
PROC: 0W9B3ZX Drainage of Left Pleural Cavity, Percutaneous Approach, Diagnostic (ICD-10-PCS; principal; 2017-06-25)
DX: C78.02 Secondary malignant neoplasm of left lung (principal); J91.0 Malignant pleural effusion; J44.0 Chronic obstructive pulmonary disease with (acute) lower respiratory infection; J18.9 Pneumonia, unspecified organism; J44.1 Chronic obstructive pulmonary disease with (acute) exacerbation; C79.51 Secondary malignant neoplasm of bone; Z66 Do not resuscitate; C78.7 Secondary malignant neoplasm of liver and intrahepatic bile duct; C79.00 Secondary malignant neoplasm of unspecified kidney and renal pelvis; I25.10 Atherosclerotic heart disease of native coronary artery without angina pectoris; F17.210 Nicotine dependence, cigarettes, uncomplicated; I10 Essential (primary) hypertension; G47.33 Obstructive sleep apnea (adult) (pediatric); E78.00 Pure hypercholesterolemia, unspecified; K21.9 Gastro-esophageal reflux disease without esophagitis; G62.9 Polyneuropathy, unspecified; M19.91 Primary osteoarthritis, unspecified site; F32.9 Major depressive disorder, single episode, unspecified; I73.9 Peripheral vascular disease, unspecified; I65.9 Occlusion and stenosis of unspecified precerebral artery; K59.00 Constipation, unspecified; Z85.41 Personal history of malignant neoplasm of cervix uteri; Z87.11 Personal history of peptic ulcer disease; Z95.9 Presence of cardiac and vascular implant and graft, unspecified; Z86.711 Personal history of pulmonary embolism; Z91.19 Patient's noncompliance with other medical treatment and regimen; D72.829 Elevated white blood cell count, unspecified; T38.0X5A Adverse effect of glucocorticoids and synthetic analogues, initial encounter; Z91.81 History of falling
CPT/HCPCS: 32550; 36415; 71010; 71020; 75989; 76942; 80048; 80053; 81000; 82945; 83605; 83615; 83690; 83735; 83880; 84100; 84157; 85007; 85025; 85027; 85610; 85730; 87040; 87070; 87075; 87116; 87205; 88112; 88305; 88341; 88342; 88344; 89051; 94640; 94760; 94761; 96361; 96365; 96375